=== PATIENT | male | born 1960 | race African-American/Black ===

== ENCOUNTER 2017-07-02 13:32 | Inpatient (IN) | payer BC ==
--- NOTE | 2017-07-02 16:19 | EKG ---
Test Date: 2017-07-02 Test Time: 15:28:29 Wire Brush Maker: NIDHI MEASUREMENT RESULTS: Intervals: Rate: 78 CA: QRSD: 114 QT: 456 QTc: 519 [place]: P: CA: QRS: 1 T: 202 INTERPRETIVE STATEMENTS: Atrial fibrillation with premature ventricular or aberrantly conducted complexes ST & T wave abnormality, consider inferior ischemia ST & T wave abnormality, consider anterolateral ischemia Prolonged QT Abnormal ECG No previous ECG available for comparison Electronically Signed On 07-02-17 16:19:12 CDT by Power Salazar
[2017-07-02 16:40] LABS: Bilirubin Direct 0.1 mg/dL (0-0.2); Bilirubin Total 0.9 mg/dL (0.3-1.2); Magnesium 2.3 mg/dL (1.8-2.5); Protein, Total 7.8 g/dL (6.0-8.3)
[2017-07-02 16:43] LABS: CKMB Creatine Kinase MB 4.6 ng/ml (0.3-4.0)
[2017-07-02 16:53] LABS: Absolute Lymphocytes (CBC) 1.3 K/uL (0.7-4.9); Absolute Monocytes 0.6 K/uL (0.1-1.3); Absolute Neutrophil 11.2 K/uL (1.8-8.0); Basophils % 0.4 % (0-1.3); Eosinophils % 0.7 % (0-4.4); Lymphocytes % 9.8 % (15.3-44.8); MCV 84.4 fL (80-100); MPV 8.8 fL (7.6-11.3); Monocytes % 4.5 % (3.3-12.3); RBC Red Blood Cell Count 4.75 M/uL (4.33-5.43)
[2017-07-02 16:56] LABS: Protime INR 1.41
--- NOTE | 2017-07-02 16:59 | RAD REPORT ---
EXAM DESCRIPTION: CT - Head Brain Wo Cont - 07/02/2017 4:46 pm CLINICAL HISTORY: Weakness, dizziness, loss of appetite COMPARISON: None. TECHNIQUE: Axial 5 mm thick images of the head were obtained without IV contrast. All CT scans are performed using dose optimization technique as appropriate and may include automated exposure control or mA/KV adjustment according to patient size. FINDINGS: No intracranial hemorrhage, mass, edema or shift of mid-line structures. No acute infarcti on changes seen. No abnormal extra-axial fluid collections. Ventricles are normal. Mastoid air cells and visualized portions of the paranasal sinuses are clear. No acute bony findings. IMPRESSION: Negative non-contrast CT head examination.
[2017-07-02] MEDS ORDERED: NA CHLORIDE 0.9% 1,000 ML ONE (17:56)
[2017-07-02] MEDS ORDERED: ASPIRIN 81 MG CHEWABLE TABLET ONE (17:56)
--- NOTE | 2017-07-02 17:59 | RAD REPORT ---
EXAM DESCRIPTION: CT - Stone Protocol - 07/02/2017 5:33 pm CLINICAL HISTORY: Abdominal pain. Acute renal failure COMPARISON: November 2016 renal ultrasound TECHNIQUE: Computed axial tomography of the abdomen pelvis was obtained without oral or IV contrast. Lack of IV and oral contrast limits evaluation of solid organs, bowel, and vessels. Coronal reformat viet images were obtained and reviewed. All CT scans are performed using dose optimization technique as appropriate and may include automated exposure control or mA/KV adjustment according to patient size. FINDINGS: A renal calculus is not seen. An ureteral calculus is not noted. A bladder calculus is not present. Sub centimeter hemorrhagic right renal cyst is present. A sub centimeter hemorrhagic left r enal cyst is seen. A 14 millimeter intermediate density mass extends off of the left kidney. The liver has a diminished attenuation consistent with fatty infiltration. Spleen, and pancreas appear grossly normal. Small right adrenal adenoma is suspected. The left adrena l gland is unremarkable. The gallbladder is distended. The appendix is normal. There is no evidence of diverticulitis. Small inguinal hernias contain fat. IMPRESSION: Negative for a genitourinary calculus Sub centimeter hemorrhagic renal cysts. 14 millimeter intermediate density mass extending off the lef t kidney likely either representing a hemorrhagic/proteinaceous cyst. This should be confirmed with a nonemergent ultrasound Gallbladder distention. The gallbladder wall does not appear thickened
--- NOTE | 2017-07-02 18:06 | RAD REPORT ---
EXAM DESCRIPTION: Jhonatan Single View07/02/2017 3:26 pm CLINICAL HISTORY: Chest pain COMPARISON: none FINDINGS: The lungs appear clear of acute infiltrate. The heart is mildly enlarged IMPRESSION: No acute abnormalities displayed
--- NOTE | 2017-07-02 18:07 | ER ---
Nurse's Notes [facility] Emergency Department Name: Arley Bauer Age: 57 yrs Sex: Male : 1960 Arrival Date: 07/02/2017 Time: 13:35 Bed 24 Private MD: Lou Newton H Diagnosis: Acute kidney failure;[place] Toxicity;Hypokalemia Presentation: 07/02 13:46 Presenting complaint: states: no appetite, weakness and not able to take anything; hj confused and complaints of shakiness; denies fever and chills;. Transition of care: patient was not received from another setting of care. Onset of symptoms was July 02, 2017. Care prior to arrival: None. 13:46 Method Of Arrival: Ambulatory 13:46 Acuity: SHANNEN 3 hj Triage Assessment: 13:52 General: Appears in no apparent distress. uncomfortable, Behavior is appropriate for hj age, agitated. Pain: Denies pain. Historical: - Allergies: 13:52 No Known Allergies; hj - Home Meds: 13:52 warfarin 5 mg Oral tab 1 tab once daily [Active]; potassium chloride 20 mEq Oral pack 1 hj packet daily [Active]; furosemide 40 mg Oral tab 1 tab 2 times per day [Active]; lithium carbonate 300 mg Oral TbER 1 tab 2 times per day [Active]; metoprolol tartrate 50 mg Oral tab 1 tab once daily [Active]; lisinopril-hydrochlorothiazide 20-12.5 mg oral tab 1 tab once daily [Active]; Tradjenta 5 mg oral tab 1 tab once daily [Active]; haloperidol lactate 2 mg/mL Oral conc 2 tab daily [Active]; - PMHx: 13:52 Diabetes - NIDDM; Atrial Fib; Hypertension; Bipolar disorder; hj - PSHx: 13:52 None; hj - Immunization history:: Adult Immunizations up to date. - Social history:: Smoking status: Patient/guardian denies using tobacco, never smoked. Screenin:17 Abuse screen: Denies threats or abuse. Nutritional screening: No deficits noted. tl3 Tuberculosis screening: No symptoms or risk factors identified. Fall Risk None identified. Assessment: 14:17 General: Appears comfortable, well groomed, well developed, well nourished, Behavior is tl3 calm, cooperative, appropriate for age. Pain: Denies pain. Neuro: Level of Consciousness is awake, alert, obeys commands, Oriented to person, place, time, situation, Appropriate for age. Neuro: Reports weakness shaking , loss of memory, confusion and loss of appetite for about 2-3 weeks. Cardiovascular: Heart tones S1 S2 present Capillary refill < 3 seconds. Respiratory: Breath sounds are clear bilaterally. GI: No signs and/or symptoms were reported involving the gastrointestinal system. Abdomen is round Bowel sounds present X 4 quads. : No signs and/or symptoms were reported regarding the genitourinary system. EENT: No signs and/or symptoms were reported regarding the EENT system. Derm: No signs and/or symptoms reported regarding the dermatologic system. Musculoskeletal: No signs and/or symptoms reported regarding the musculoskeletal system. 15:30 Reassessment: Patient appears in no apparent distress at this time. No changes from tl3 previously documented assessment. Patient and/or family updated on plan of care and expected duration. Pain level reassessed. Patient is alert, oriented x 3, equal unlabored respirations, skin warm/dry/pink. at bedside. 16:40 Reassessment: Patient appears in no apparent distress at this time. No changes from tl3 previously documented assessment. Patient and/or family updated on plan of care and expected duration. Pain level reassessed. Patient is alert, oriented x 3, equal unlabored respirations, skin warm/dry/pink. 17:30 Reassessment: Patient appears in no apparent distress at this time. No changes from tl3 previously documented assessment. Patient and/or family updated on plan of care and expected duration. Pain level reassessed. Patient is alert, oriented x 3, equal unlabored respirations, skin warm/dry/pink. pacheco placed with output of 600ml urine. 19:09 Reassessment: Patient appears in no apparent distress at this time. No changes from tl3 previously documented assessment. Patient and/or family updated on plan of care and expected duration. Pain level reassessed. Patient is alert, oriented x 3, equal unlabored respirations, skin warm/dry/pink. pt tolerating water and peanut butter and crackers. 20:13 Reassessment: Patient appears in no apparent distress at this time. No changes from tl3 previously documented assessment. Patient and/or family updated on plan of care and expected duration. Pain level reassessed. Patient is alert, oriented x 3, equal unlabored respirations, skin warm/dry/pink. son at bedside. 20:25 Reassessment: pt returned from ultrasound. tl3 20:57 Reassessment: attempted to call report for the second time, Kolby LAMA will call back tl3 CALOS. 21:26 Reassessment: lab called to come draw labs. tl3 Vital Signs: 13:52 BP 92 / 48; Pulse 71; Resp 18; Temp 97.2(TE); Pulse Ox 100% on R/A; Weight 108.86 kg; hj Height 5 ft. 8 in. (172.72 cm); Pain 0/10; 14:17 BP 106 / 64; Pulse 69; Resp 18; Pulse Ox 98% ; tl3 18:30 BP 125 / 66; Pulse 81; Resp 18; Pulse Ox 100% ; tl3 19:13 BP 154 / 83; Pulse 70; Resp 16; Pulse Ox 98% ; tl3 13:52 Body Mass Index 36.49 (108.86 kg, 172.72 cm) ED Course: 13:35 Patient arrived in ED. mr 13:35 Lou Newton DO is Private Physician. mr 13:48 Triage completed. hj 13:52 Arm band placed on left wrist. hj 14:02 [facility]. cp 14:02 Guilherme Knapp MD is Attending Physician. cp 14:11 Sybil Iglesias, KELBY is Primary Nurse. tl3 14:17 Patient has correct armband on for positive identification. Bed in low position. Call tl3 light in reach. Side rails up X 1. Adult w/ patient. Pulse ox on. NIBP on. 15:26 X-ray completed. Portable x-ray completed in exam room. Patient tolerated procedure kw1 well. 15:26 XRAY Chest (1 view) In Process Unspecified. EDMS 15:45 EKG done, by pressure testing technician. reviewed by Guilherme BISHOP. at1 16:33 CT Head Brain wo Cont Sent. tl3 16:45 Notified Nurse Practitioner and/or Physician Core Microarchitect of a critical lab result(s), dm5 Creatinine 6.57, lithium 2.6. 16:46 CT Head Brain wo Cont In Process Unspecified. EDMS 16:46 CT completed. Patient moved back from CT. jj2 17:32 CT Stone Protocol In Process Unspecified. EDMS 18:05 Amadou Solis MD is Hospitalizing Provider. cp 18:30 Pacheco cath inserted, using sterile technique, 16 Fr., by or, balloon inflated, urine tl3 specimen collected. returned clear yellow urine. Patient tolerated well. 20:19 Ultrasound completed. Patient tolerated well. aa4 20:42 No provider procedures requiring assistance completed. tl3 20:42 Patient admitted, IV remains in place. tl3 Administered Medications: 17:39 Not Given (Physician Discretion): NS 0.9% 1000 ml IV at 1 bolus Per protocol; 1000 mL cp bolus 17:39 Not Given (Physician Discretion): NS 0.9% 1000 ml IV at 100 ml/hr continuous cp 17:43 Drug: Aspirin Chewable Tablet 324 mg Route: PO; tl3 20:12 Follow up: Response: No adverse reaction tl3 18:00 Drug: NS 0.9% 500 ml Route: IV; Rate: bolus; Site: right antecubital; Delivery: Primary tl3 tubing; 19:05 Follow up: IV Status: Completed infusion; IV Intake: 500ml tl3 18:20 Drug: NS 0.9% 1000 ml Route: IV; Rate: 75 ml/hr; Site: right antecubital; tl3 20:41 Follow up: IV Status: Infusion continued upon admission tl3 Point of Care Testing: Blood Glucose: 18:30 Blood Glucose: 178 mg/dL; tl3 Ranges: Intake: 19:05 IV: 500ml; Total: 500ml. tl3 Output: 18:30 Urine: 600ml; Total: 600ml. tl3 Outcome: 18:07 Decision to Hospitalize by Provider. cp 20:43 Admitted to Tele accompanied by tech, via stretcher, with chart. tl3 20:43 Condition: stable 23:00 Patient left the ED. tl3 Signatures: Dispatcher [employer] EDNE Lorena Hinds, RN RN dm5 Paradise Ramon mr Velasquez Roberta Benitez aa4 Roberta jimenez, real estate professional EKG Tat1 Austyn Brown RN RN Guilherme Fajardo PA PA cp Evie Garibay1 Sybil Iglesias RN RN tl3 Corrections: (The following items were deleted from the chart) 13:56 13:52 Pulse 71bpm; Resp 18bpm; Pulse Ox 100% RA; Temp 97.2F Temporal; 108.86 kg; Height hj 5 ft. 8 in.; BMI: 36.4; Pain 0/10; hj 13:57 13:52 BP 100 / 48; Pulse 71bpm; Resp 18bpm; Pulse Ox 100% RA; Temp 97.2F Temporal; hj 108.86 kg; Height 5 ft. 8 in.; BMI: 36.4; Pain 0/10; hj 19:13 19:05 URINE DIPSTICK--ANCILLARY+U.LAB.BRZ drawn and sent. tl3 tl3
--- NOTE | 2017-07-02 18:07 | EDPHYS ---
Physician Documentation [facility] Name: Arley Bauer Age: 57 yrs Sex: Male : 1960 Arrival Date: 07/02/2017 Time: 13:35 Bed 24 Private MD: Lou Newton H ED Physician Guilherme Knapp HPI: 07/02 14:55 This 57 yrs old Black Male presents to ER via Ambulatory with complaints of General cp Weakness. 14:55 general weakness, decreased appetite and oral intake. Onset: The symptoms/episode cp began/occurred gradually. 14:55 Severity of symptoms: in the emergency department the symptoms are unchanged despite cp home interventions. Historical: - Allergies: 13:52 No Known Allergies; hj - Home Meds: 13:52 warfarin 5 mg Oral tab 1 tab once daily [Active]; potassium chloride 20 mEq Oral pack 1 hj packet daily [Active]; furosemide 40 mg Oral tab 1 tab 2 times per day [Active]; lithium carbonate 300 mg Oral TbER 1 tab 2 times per day [Active]; metoprolol tartrate 50 mg Oral tab 1 tab once daily [Active]; lisinopril-hydrochlorothiazide 20-12.5 mg oral tab 1 tab once daily [Active]; Tradjenta 5 mg oral tab 1 tab once daily [Active]; haloperidol lactate 2 mg/mL Oral conc 2 tab daily [Active]; - PMHx: 13:52 Diabetes - NIDDM; Atrial Fib; Hypertension; Bipolar disorder; hj - PSHx: 13:52 None; hj - Immunization history:: Adult Immunizations up to date. - Social history:: Smoking status: Patient/guardian denies using tobacco, never smoked. ROS: 15:00 Constitutional: Positive for poor PO intake, Negative for body aches, chills, fever. cp 15:00 Eyes: Negative for injury, pain, redness, and discharge, ENT: Negative for injury, cp pain, and discharge, Cardiovascular: Negative for chest pain, palpitations, and edema, Respiratory: Negative for shortness of breath, cough, wheezing, and pleuritic chest pain, Abdomen/GI: Negative for abdominal pain, nausea, vomiting, diarrhea, and constipation, Skin: Negative for injury, rash, and discoloration. 15:00 : Positive for decreased urinary output. 15:00 Neuro: Positive for gait disturbance, general weakness, Negative for altered mental status, headache, seizure activity, speech changes. 15:00 All other systems are negative. Exam: 15:10 Constitutional: The patient appears in no acute distress, alert, awake, cp non-diaphoretic, non-toxic, well developed, well nourished. 15:10 Head/Face: Normocephalic, atraumatic. cp 15:10 Eyes: Periorbital structures: appear normal, Pupils: equal, round, and reactive to cp light and accomodation, Extraocular movements: intact throughout, Conjunctiva: normal, no exudate, no injection, Sclera: no appreciated abnormality, Lids and lashes: appear normal, bilaterally. 15:10 ENT: External ear(s): are unremarkable, Ear canal(s): are normal, clear, TM's: dullness, bilaterally, Nose: is normal, Mouth: Lips: moist, Oral mucosa: dry, Posterior pharynx: Airway: no evidence of obstruction, patent, Tonsils: are normal in appearance, Uvula: midline, non-edematous, no erythema, swelling, is not appreciated, erythema, is not appreciated, exudate, is not appreciated, Voice: is normal. 15:10 Neck: ROM/movement: is normal, is supple, without pain, no range of motions limitations, no meningismus, no nuchal rigidity, Lymph nodes: no appreciated lymphadenopathy. 15:10 Chest/axilla: Inspection: normal, Palpation: is normal, no crepitus, no tenderness. 15:10 Cardiovascular: Rate: normal, Rhythm: regular, Pulses: weak, Edema: is not appreciated, JVD: is not appreciated. 15:10 Respiratory: the patient does not display signs of respiratory distress, Respirations: normal, no use of accessory muscles, no retractions, no splinting, no tachypnea, labored breathing, is not present, Breath sounds: are clear throughout, no decreased breath sounds, no stridor, no wheezing. 15:10 Abdomen/GI: Inspection: abdomen appears normal, Bowel sounds: active, all quadrants, Palpation: abdomen is soft and non-tender, in all quadrants, rebound tenderness, is not appreciated, voluntary guarding, is not appreciated, involuntary guarding, is not appreciated. 15:10 Back: pain, is absent, ROM is normal. 15:10 Skin: cellulitis, is not appreciated, no rash present. 15:10 Neuro: Orientation: to person, place \T\ time. Mentation: able to follow commands, slow to respond, Cerebellar function: Romberg testing is negative, normal finger to nose testing, Motor: moves all fours, general weakness w/o focal deficits, Sensation: no obvious gross deficits, Gait: not tested. 15:35 ECG was reviewed by the Attending Physician. Vital Signs: 13:52 BP 92 / 48; Pulse 71; Resp 18; Temp 97.2(TE); Pulse Ox 100% on R/A; Weight 108.86 kg; hj Height 5 ft. 8 in. (172.72 cm); Pain 0/10; 14:17 BP 106 / 64; Pulse 69; Resp 18; Pulse Ox 98% ; tl3 18:30 BP 125 / 66; Pulse 81; Resp 18; Pulse Ox 100% ; tl3 19:13 BP 154 / 83; Pulse 70; Resp 16; Pulse Ox 98% ; tl3 13:52 Body Mass Index 36.49 (108.86 kg, 172.72 cm) MDM: 14:05 Patient medically screened. [facility] 15:00 Differential Diagnosis sepsis, acute [place], acute renal failure, dehydration, pneumonia. 17:30 Data reviewed: vital signs, nurses notes, lab test result(s), EKG, radiologic studies, cp plain films. 17:30 Test interpretation: by ED physician or midlevel provider: ECG, plain radiologic cp studies. Response to treatment: the patient's symptoms have mildly improved after treatment. 17:39 Physician consultation: Yojana Camp MD. 07/02 14:51 Order name: Basic Metabolic Panel; Complete Time: 16:53 07/02 16:54 Interpretation: Normal except: GLUC 200; K 3.0; NA 125; CL 90; CO2 19; BUN 102; CRE cp 6.57; GFR 11. 07/02 14:51 Order name: BNP; Complete Time: 16:53 cp 07/02 14:51 Order name: CBC with Diff; Complete Time: 17:00 cp 07/02 17:00 Interpretation: Normal except: WBC 13.2; HGB 13.3; ZAYNAB% 84.6; LYM% 9.8; NEUT A 11.2. cp 07/02 14:51 Order name: Ckmb; Complete Time: 16:53 07/02 14:51 Order name: CPK; Complete Time: 16:53 07/02 14:51 Order name: LFT's; Complete Time: 16:53 07/02 17:09 Interpretation: ALK 162; GLOB 3.8; Reviewed. 07/02 14:51 Order name: Magnesium; Complete Time: 16:53 07/02 14:51 Order name: PT-INR; Complete Time: 17:00 07/02 17:01 Interpretation: Abnormal: PT 16.7. 07/02 14:51 Order name: Ptt, Activated; Complete Time: 17:00 07/02 14:51 Order name: Troponin (emerg Dept Use Only); Complete Time: 16:53 07/02 16:55 Interpretation: TROPED 0.04; Reviewed. 07/02 14:51 Order name: [place]; Complete Time: 16:53 07/02 16:54 Interpretation: Abnormal: LI 2.6. 07/02 17:40 Order name: UDS 07/02 18:41 Order name: Urine Dipstick--Ancillary (enter results) ag 07/02 18:46 Order name: PSA Screen [facility] 07/02 14:51 Order name: XRAY Chest (1 view); Complete Time: 18:31 07/02 14:51 Order name: EKG; Complete Time: 14:52 07/02 16:10 Order name: CT Head Brain wo Cont; Complete Time: 17:00 07/02 17:11 Order name: CT Stone Protocol; Complete Time: 18:31 07/02 17:12 Order name: Diet Renal; Complete Time: 17:12 07/02 18:42 Order name: CONS Physician Consult [facility] 07/02 18:46 Order name: T3 Free [facility] 07/02 18:46 Order name: Thyroid Stimulating Hormone [facility] 07/02 20:26 Order name: US [facility] 07/02 22:29 Order name: Glucose, Ancillary Testing [facility] 07/02 14:51 Order name: Cardiac monitoring; Complete Time: 15:07 07/02 14:51 Order name: EKG - Nurse/Tech; Complete Time: 19:08 07/02 14:51 Order name: IV Saline Lock; Complete Time: 19:07 cp 07/02 14:51 Order name: Labs collected and sent; Complete Time: 19: cp 07/02 14:51 Order name: O2 Per Protocol; Complete Time: : cp 07/02 14:51 Order name: O2 Sat Monitoring; Complete Time: 19: cp 07/02 14:51 Order name: Urine Dipstick-Ancillary (obtain specimen); Complete Time: 19: cp 07/02 14:52 Order name: Misc. Order: have patient change into gown; Complete Time: 15: cp 07/02 15:12 Order name: Accucheck Blood Glucose; Complete Time: 19: cp 07/02 17:11 Order name: Real; Complete Time: 19: cp EC:35 Rate is 78 beats/min. Rhythm is irregularly irregular. QRS interval is prolonged at 114 cp msec. QT interval is prolonged at 456 msec. T waves are Inverted in leads I, II. Interpreted by me. Reviewed by me. Administered Medications: 17:39 Not Given (Physician Discretion): NS 0.9% 1000 ml IV at 1 bolus Per protocol; 1000 mL cp bolus 17:39 Not Given (Physician Discretion): NS 0.9% 1000 ml IV at 100 ml/hr continuous cp 17:43 Drug: Aspirin Chewable Tablet 324 mg Route: PO; tl3 20:12 Follow up: Response: No adverse reaction tl3 18:00 Drug: NS 0.9% 500 ml Route: IV; Rate: bolus; Site: right antecubital; Delivery: Primary tl3 tubing; 19:05 Follow up: IV Status: Completed infusion; IV Intake: 500ml tl3 18:20 Drug: NS 0.9% 1000 ml Route: IV; Rate: 75 ml/hr; Site: right antecubital; tl3 20:41 Follow up: IV Status: Infusion continued upon admission tl3 Point of Care Testing: Blood Glucose: 18:30 Blood Glucose: 178 mg/dL; tl3 Ranges: Critical Glucose Levels:Adult <50 mg/dl or >400 mg/dl <40 mg/dl or >180 mg/dl Disposition: 07/03 06:45 Co-signature as Attending Physician, Guilherme Knapp MD I agree with the assessment and kai plan of care. Disposition: 07/02/17 18:07 Hospitalization ordered by Solis, Mohammad for Inpatient Admission. Preliminary diagnosis are Acute kidney failure, [place] Toxicity, Hypokalemia. - Bed requested for Telemetry/MedSurg (Inpatient). - Status is Inpatient Admission. tl3 - Condition is Serious. - Problem is new. - Symptoms are unchanged. UTI on Admission? No Signatures: Dispatcher [employer] EDMS Evie Olmedo, KELBY RN Guilherme Mg MD MD cha Joaquin, Henry, RN RN hj Page, Corey, PA PA cp Lowrey, Tammy, RN RN tl3 Corrections: (The following items were deleted from the chart) 07/02 16:54 16:37 Normal except: GLUC 200. cp cp
[2017-07-02 18:51] LABS: Barbiturates NEGATIVE; Benzodiazepines NEGATIVE; Cocaine NEGATIVE; METHAMPHETAM NEGATIVE; Opiates NEGATIVE; Phencyclidine NEGATIVE; THC Cannibis NEGATIVE
[2017-07-02] MEDS ORDERED: NA CHLORIDE 0.9% 1,000 ML IV SCH (19:00)
[2017-07-02 19:25] LABS: Urine Blood TRACE (NEG); Urine Glucose NEGATIVE (NEG); Urine Protein 3+ (NEG); Urine pH 5.5 (5.0-7.0)
[2017-07-02] MEDS ORDERED: ACETAMINOPHEN 500 MG TAB PO PRN (19:36)
[2017-07-02] MEDS ORDERED: MORPHINE 2 MG/ML SYR IV PRN (19:36)
[2017-07-02] MEDS ORDERED: ONDANSETRON 4 MG/2 ML VIAL IV PRN (19:36)
[2017-07-02] MEDS: D5W 1,000 ML with NA BICARB 8.4% 50 MEQ IV SCH ×2 (20:00)
--- NOTE | 2017-07-02 20:26 | RAD REPORT ---
EXAM DESCRIPTION: US - Renal Ultrasound-Complete - 07/02/2017 8:19 pm CLINICAL HISTORY: . Acute renal insufficiency COMPARISON: CT scan on the same date FINDINGS: The right kidney measures 12 cm with increased echotexture. The left kidney measures 12 cm with increased echotexture. Hydronephrosis is not seen. Small benign-appearing renal cysts are present IMPRESSION: Increased renal echotexture consistent with parenchymal disease No hydronephrosis Small benign-appearing renal cysts
[2017-07-02 23:32] LABS: T3 Free 2.86 pg/ml (2.84-4.24)
[2017-07-02 23:49] LABS: Thyroid Stimulating Hormone 1.96 uIU/mL (0.34-5.60)
[2017-07-03] MEDS ORDERED: D5W 1,000 ML IV ONE (00:19)
[2017-07-03] MEDS ORDERED: SODIUM BICARB 50 MEQ/50ML VIAL ONE (00:20)
[2017-07-03 04:28] LABS: Absolute Lymphocytes (CBC) 1.9 K/uL (0.7-4.9); Absolute Monocytes 0.8 K/uL (0.1-1.3); Absolute Neutrophil 11.4 K/uL (1.8-8.0); Basophils % 0.3 % (0-1.3); Eosinophils % 1.6 % (0-4.4); Hematocrit 32.9 % (39.6-49.0); Lymphocytes % 13.1 % (15.3-44.8); MCV 84.3 fL (80-100); MPV 8.8 fL (7.6-11.3); Monocytes % 5.8 % (3.3-12.3); RBC Red Blood Cell Count 3.91 M/uL (4.33-5.43)
[2017-07-03 05:00] LABS: Albumin 3.2 g/dL (3.2-5.5); Bilirubin Total 0.7 mg/dL (0.3-1.2); Phosphorus 4.5 mg/dL (2.5-4.3); Protein, Total 6.6 g/dL (6.0-8.3)
[2017-07-03 05:03] LABS: Uric Acid 23.2 mg/dL (4.8-8.7)
[2017-07-03 05:05] LABS: Potassium 2.5 mEq/L (3.6-5.0)
[2017-07-03] MEDS: KCL 20 MEQ/100 mL IVPB 20 MEQ/100 ML BAG IV SCH ×4 (05:58→21:53)
[2017-07-03] MEDS ORDERED: POTASSIUM 25 MEQ EFFERV TAB PO ONE ×2 (06:00→11:00)
[2017-07-03 06:08] LABS: Urine Appearance CLOUDY; Urine Bilirubin NEGATIVE (NEG); Urine Blood 3+ (NEG); Urine Color YELLOW; Urine Glucose NEGATIVE (NEG); Urine Protein 2+ (NEG); Urine Urobilinogen 0.2 mg/dL (0.2-1.0); Urine pH 5.5 (5.0-7.0)
[2017-07-03] MEDS: D5W 1,000 ML with NA BICARB 8.4% 50 MEQ IV SCH ×2 (06:30)
[2017-07-03 06:34] LABS: Urine Bacteria <20 /HPF (NONE SEEN); Urine Culture Reflex Order REFLEXED
[2017-07-03] MEDS ORDERED: PNEUMOCOCCAL VACCINE 0.5 ML IMVAC ONE (08:00)
[2017-07-03] MEDS ORDERED: INFLUENZA VACCINE (for 3y+) 0.5 ML DOSE IMVAC ONE (08:00)
[2017-07-03] MEDS ORDERED: NA CHLORIDE 0.9% 500 ML IV ONE ×2 (08:07→08:44)
--- NOTE | 2017-07-03 08:12 | P.HP ---
Certification for Inpatient Patient admitted to: Inpatient With expected LOS: >2 Midnights Patient will require the following post-hospital care: None Practitioner: I am a practitioner with admitting privileges, knowledge of patient current condition, hospital course, and medical plan of care. Services: Services provided to patient in accordance with Admission requirements found in Title 42 Section 412.3 of the Code of Federal Regulations Patient History Date of Service: 07/02/17 Reason for admission: Acute kidney injury; altered mental status History of Present Illness: Patient is a 57-year-old gentleman who presents to the hospital with altered mentation. Patient has been lethargic and has not been eating or drinking for the last few days. The family was concerned and brought him into the emergency room. In the emergency room, patient's workup revealed acute kidney injury. Patient had significantly elevated BUN and creatinine. Patient and family denies that he has ever had a history of kidney issues. He is being treated for bipolar disorder with lithium. His lithium level was elevated because of his acute kidney injury. At this time will hydrate him aggressively and monitor his labs as well as order renal ultrasound. We will check his urine protein:creatinine ratio. Will continue monitoring his labs. Nephrology consultation. Allergies No Known Allergies Allergy (Verified 07/03/17 02:03) Home Medications: Furosemide [Lasix] 40 mg PO BIDL 07/03/17 Haloperidol Lactate 2 mg PO DAILY 07/03/17 Linagliptin [Tradjenta] 5 mg PO DAILY 07/03/17 Lisinopril/Hydrochlorothiazide [Lisinopril-Hctz 20-12.5 mg Tab] 1 tab PO DAILY 07/03/17 [place] Carbonate [[place] Carbonate ER] 300 mg PO BID 07/03/17 Metoprolol Succinate [Toprol Xl] 50 mg PO DAILY 07/03/17 Potassium Chloride 20 meq PO DAILY 07/03/17 Warfarin Sodium [Coumadin] 5 mg PO DIRECTED 07/03/17 Warfarin Sodium [Coumadin] 7.5 mg PO DIRECTED 07/03/17 - Past Medical/Surgical History Has patient received pneumonia vaccine in the past: No Diabetic: Yes -: A fib (Mar 2017) -: Depression Past Surgical History: Patient denies surgical history - Family History Mother Medical History: Hypertension, Diabetes - Social History Smoking Status: Never smoker Alcohol use: No CD- Drugs: No Caffeine use: Yes Place of Residence: Home Review of Systems 10-point ROS is otherwise unremarkable Physical Examination - Vital Signs Temperature: 97.5 F Blood Pressure: 133/66 Pulse: 60 Respirations: 18 Pulse Ox (%): 98 - Physical Exam General: Alert, In no apparent distress, Oriented x3 HEENT: Atraumatic, PERRLA, Mucous membr. moist/pink, EOMI, Sclerae nonicteric Neck: Supple, 2+ carotid pulse no bruit, No LAD, Without JVD or thyroid abnormality Respiratory: Clear to auscultation bilaterally, Normal air movement Cardiovascular: Regular rate/rhythm, Normal S1 S2, No murmurs Gastrointestinal: Normal bowel sounds, Soft and benign, Non-distended, No tenderness Musculoskeletal: No clubbing, No swelling, No tenderness Integumentary: No rashes Neurological: Normal gait, Normal speech, Normal strength at 5/5 x4 extr, Normal tone, Sensation intact, Cranial nerves 3-12 intact, Normal affect Lymphatics: No axilla or inguinal lymphadenopathy - Studies Laboratory Data (last 24 hrs) 07/02/17 16:07: PT 16.7 H, INR 1.41, APTT 28.0 07/02/17 16:07: WBC 13.2 H, Hgb 13.3 L, Hct 40.0, Plt Count 371 07/02/17 16:07: B-Natriuretic Peptide 156 H 07/02/17 16:07: Sodium 125 L, Potassium 3.0 L, BUN 102 H, Creatinine 6.57 H*, Glucose 200 H, Magnesium 2.3, Total Bilirubin 0.9, AST 15, ALT 16, Alkaline Phosphatase 162 H Assessment & Plan - Problems (Diagnosis) (1) Acute kidney injury Current Visit: Yes Status: Acute (2) Prerenal azotemia Current Visit: Yes Status: Acute (3) Metabolic acidosis Current Visit: Yes Status: Acute (4) Hyponatremia Current Visit: Yes Status: Acute (5) Hypokalemia Current Visit: Yes Status: Acute (6) Bipolar disorder Current Visit: Yes Status: Acute (7) [place] toxicity Current Visit: Yes Status: Acute - Plan Plan: 1. Aggressive IV hydration 2. Bicarbonate drip 3. Nephrology consultation 4. Renal ultrasound 5. Additional lab workup to monitor renal function 6. Strict input and output 7. Echocardiogram 8. DVT prophylaxis - Advance Directives Does patient have a Living Will: Yes Does patient have a Durable POA for Healthcare: No - Code Status/Comfort Care Code Status Assessed: Yes Code Status: Full Code Critical Care: No Time Spent Managing PTS Care (In Minutes): 50
[2017-07-03] MEDS ORDERED: KCL 20 MEQ/100 mL IVPB 20 MEQ/100 ML BAG IV ONE (08:30)
[2017-07-03] MEDS: NA CHLORIDE 0.9% 500 ML IV ONE ×2 (10:08→10:12)
[2017-07-03 10:16] LABS: UR CREAT 93.5 mg/dL; Urine Protein/Creatinine Ratio 1.42 (<0.15)
[2017-07-03] MEDS ORDERED: D5W 1,000 ML with NA BICARB 8.4% 50 MEQ IV SCH ×2 (11:00)
[2017-07-03] MEDS ORDERED: D50W 25 GM/50 ML SYRINGE IV PRN (12:15)
[2017-07-03] MEDS ORDERED: GLUCAGON 1 MG/VIAL IM PRN (12:15)
[2017-07-03] MEDS: D5W 1,000 ML with NA BICARB 8.4% 150 MEQ IV SCH ×4 (12:25→22:04)
[2017-07-03] MEDS: INSULIN -REGULAR HUMAN 50 UNIT/0.5 ML ML SQ SCH ×3 (12:40→21:55)
--- NOTE | 2017-07-03 15:41 | P.PN ---
Subjective Date of Service: 07/03/17 Chief Complaint: Acute kidney injury; altered mental status The patient feels better with more alert and he has no new complaints Physical Examination - Vital Signs Temperature: 97.5 F Blood Pressure: 133/66 Pulse: 60 Respirations: 18 Pulse Ox (%): 98 - Physical Exam General: Alert, In no apparent distress HEENT: Atraumatic, PERRLA, EOMI Neck: Supple, JVD not distended Respiratory: Clear to auscultation bilaterally, Normal air movement Cardiovascular: Regular rate/rhythm, Normal S1 S2 Gastrointestinal: Normal bowel sounds, No tenderness Musculoskeletal: No tenderness Integumentary: No rashes Neurological: Normal speech, Normal tone, Normal affect Lymphatics: No axilla or inguinal lymphadenopathy - Studies Laboratory Data (last 24 hrs) 07/02/17 16:07: PT 16.7 H, INR 1.41, APTT 28.0 07/02/17 16:07: WBC 13.2 H, Hgb 13.3 L, Hct 40.0, Plt Count 371 07/02/17 16:07: B-Natriuretic Peptide 156 H 07/02/17 16:07: Sodium 125 L, Potassium 3.0 L, BUN 102 H, Creatinine 6.57 H*, Glucose 200 H, Magnesium 2.3, Total Bilirubin 0.9, AST 15, ALT 16, Alkaline Phosphatase 162 H Medications List Reviewed: Yes Assessment And Plan - Current Problems (Diagnosis) (1) [place] toxicity Onset Date: 07/03/17 Current Visit: Yes Status: Acute (2) Acute kidney injury Onset Date: 07/03/17 Current Visit: Yes Status: Acute (3) Bipolar disorder Onset Date: 07/03/17 Current Visit: Yes Status: Acute (4) Hypokalemia Onset Date: 07/03/17 Current Visit: Yes Status: Acute (5) Metabolic acidosis Onset Date: 07/03/17 Current Visit: Yes Status: Acute - Plan --continue intravenous fluid replacement --continue potassium replacement --follow-up lithium level --consult Nephrology
[2017-07-03 16:38] LABS: Potassium 2.9 mEq/L (3.6-5.0)
--- NOTE | 2017-07-03 18:42 | P.CNS ---
Date of Consult: 07/03/17 Reason for Consult: ARTEMIO Requesting Physician: Charles Coleman Chief Complaint: Acute kidney injury; altered mental status History of Present Illness: 57 yo BM on Mac[place] presented to the ER with several weeks of moderate, progressive malaise and anorexia that worsened significantly over the last few days with AMS. Question of urinary retention. No NSAIDs. Limited HPI/ ROS from the patient. Patient is a 57-year-old gentleman who presents to the hospital with altered mentation. Patient has been lethargic and has not been eating or drinking for the last few days. The family was concerned and brought him into the emergency room. In the emergency room, patient's workup revealed acute kidney injury. Patient had significantly elevated BUN and creatinine. Patient and family denies that he has ever had a history of kidney issues. He is being treated for bipolar disorder with lithium. His lithium level was elevated because of his acute kidney injury. At this time will hydrate him aggressively and monitor his labs as well as order renal ultrasound. We will check his urine protein:creatinine ratio. Will continue monitoring his labs. Nephrology consultation. 14:55 This 57 yrs old Black Male presents to ER via Ambulatory with complaints of General cp Weakness. 14:55 general weakness, decreased appetite and oral intake. Onset: The symptoms/ episode cp began/occurred gradually. 14:55 Severity of symptoms: in the emergency department the symptoms are unchanged despite cp home interventions. Allergies No Known Allergies Allergy (Verified 07/03/17 02:03) Home medications list reviewed: Yes Home Medications: Furosemide [Lasix] 40 mg PO BIDL 07/03/17 Haloperidol Lactate 2 mg PO DAILY 07/03/17 Linagliptin [Tradjenta] 5 mg PO DAILY 07/03/17 Lisinopril/Hydrochlorothiazide [Lisinopril-Hctz 20-12.5 mg Tab] 1 tab PO DAILY 07/03/17 [place] Carbonate [[place] Carbonate ER] 300 mg PO BID 07/03/17 Metoprolol Succinate [Toprol Xl] 50 mg PO DAILY 07/03/17 Potassium Chloride 20 meq PO DAILY 07/03/17 Warfarin Sodium [Coumadin] 5 mg PO DIRECTED 07/03/17 Warfarin Sodium [Coumadin] 7.5 mg PO DIRECTED 07/03/17 - Past Medical/Surgical History Diabetic: Yes -: A fib (Mar 2017) -: Depression - Family History Mother Medical History: Hypertension, Diabetes - Social History Smoking Status: Never smoker Alcohol use: No CD- Drugs: No Caffeine use: Yes Place of Residence: Home Review of Systems 10-point ROS is otherwise unremarkable General: Weakness, Malaise Physical Examination Temp Pulse Resp BP Pulse Ox 97.4 F 75 18 117/68 94 07/03/17 16:00 07/03/17 16:00 07/03/17 16:00 07/03/17 16:00 07/03/17 16:00 General: In no apparent distress, Cooperative HEENT: Normocephalic Neck: Supple, JVD not distended Respiratory: Clear to auscultation bilaterally, Normal air movement Cardiovascular: No edema, Regular rate/rhythm, No rubs Gastrointestinal: Soft and benign, Non-distended Musculoskeletal: No clubbing, No contractures Integumentary: No rashes, No cyanosis Neurological: Normal speech Blood work reviewed in the chart. Initial blood work: Na 125; Cr 6.57 Imagings Data: Reason for Exam: ARTEMIO Report Status: Signed EXAM DESCRIPTION: US - Renal Ultrasound-Complete - 07/02/2017 8:19 pm CLINICAL HISTORY: . Acute renal insufficiency COMPARISON: CT scan on the same date FINDINGS: The right kidney measures 12 cm with increased echotexture. The left kidney measures 12 cm with increased echotexture. Hydronephrosis is not seen. Small benign-appearing renal cysts are present IMPRESSION: Increased renal echotexture consistent with parenchymal disease No hydronephrosis Small benign-appearing renal cysts Conclusions/Impression: A/ ARTEMIO of unclear etiology but may due to severe hypovolemia in the setting of ANTWAN / diuretic. [place] Toxicity; HD not indicated at this time. Hyponatremia. Hypokalemia. Acidosis. Anemia in chronic illness. HTN controlled. P/ Continue current POC and Medications. Adjust bicarb IVF. Give an IVF bolus. Replace KCl. Recheck BMP later today. Agree with Real catheter. No NSAIDs. AM labs. Daily weight. Thank you kindly for the consultation.
[2017-07-03] MEDS: SODIUM CHLORIDE 1 GM TAB PO SCH ×2 (19:38→21:54)
[2017-07-04] MEDS: KCL 20 MEQ/100 mL IVPB 20 MEQ/100 ML BAG IV SCH ×4 (03:40→17:38)
[2017-07-04 04:54] LABS: Absolute Monocytes 0.6 K/uL (0.1-1.3); Basophils % 0.7 % (0-1.3); Eosinophils % 2.1 % (0-4.4); Hematocrit 34.7 % (39.6-49.0); Lymphocytes % 16.6 % (15.3-44.8); MCH 28.3 pg (27.0-35.0); MCV 84.3 fL (80-100); MPV 8.7 fL (7.6-11.3); Monocytes % 5.1 % (3.3-12.3); RBC Red Blood Cell Count 4.12 M/uL (4.33-5.43)
[2017-07-04 05:08] LABS: Albumin 3.1 g/dL (3.2-5.5); Bilirubin Total 0.8 mg/dL (0.3-1.2); Protein, Total 6.6 g/dL (6.0-8.3)
[2017-07-04 05:29] LABS: Potassium 2.7 mEq/L (3.6-5.0)
[2017-07-04 05:40] LABS: Urine Appearance CLEAR; Urine Bilirubin NEGATIVE (NEG); Urine Blood TRACE (NEG); Urine Color YELLOW; Urine Glucose NEGATIVE (NEG); Urine Protein 2+ (NEG); Urine Urobilinogen 0.2 mg/dL (0.2-1.0); Urine pH 7.5 (5.0-7.0)
[2017-07-04 05:42] LABS: UR CREAT 44.9 mg/dL; UR MICROALBUMIN 86.5 mg/dL (< 1.9)
[2017-07-04 06:01] LABS: Urine RBC <5 /HPF (NONE SEEN)
[2017-07-04 06:02] LABS: Urine Bacteria <20 /HPF (NONE SEEN); Urine Culture Reflex Order NOT NEEDED
[2017-07-04] MEDS: INSULIN -REGULAR HUMAN 50 UNIT/0.5 ML ML SQ SCH ×4 (08:22→21:36)
[2017-07-04] MEDS: SODIUM CHLORIDE 1 GM TAB PO SCH ×4 (08:22→21:36)
[2017-07-04] MEDS: Ringers Lactate 1,000 ML IV SCH ×2 (09:03→17:38)
[2017-07-04] MEDS: POTASSIUM 25 MEQ EFFERV TAB PO SCH ×3 (09:03→21:36)
--- NOTE | 2017-07-04 15:59 | P.PN ---
Subjective Date of Service: 07/04/17 Chief Complaint: Acute kidney injury; altered mental status The patient feels better with more alert and he has no new complaints Physical Examination - Vital Signs Temperature: 97.8 F Blood Pressure: 112/84 Pulse: 70 Respirations: 18 Pulse Ox (%): 97 - Physical Exam General: Alert, In no apparent distress HEENT: Atraumatic, PERRLA, EOMI Neck: Supple, JVD not distended Respiratory: Clear to auscultation bilaterally, Normal air movement Cardiovascular: Regular rate/rhythm, Normal S1 S2 Gastrointestinal: Normal bowel sounds, No tenderness Musculoskeletal: No tenderness Integumentary: No rashes Neurological: Normal speech, Normal tone, Normal affect Lymphatics: No axilla or inguinal lymphadenopathy - Studies Medications List Reviewed: Yes Assessment And Plan - Current Problems (Diagnosis) (1) [place] toxicity Onset Date: 07/03/17 Current Visit: Yes Status: Acute (2) Acute kidney injury Onset Date: 07/03/17 Current Visit: Yes Status: Acute (3) Bipolar disorder Onset Date: 07/03/17 Current Visit: Yes Status: Acute (4) Hypokalemia Onset Date: 07/03/17 Current Visit: Yes Status: Acute (5) Metabolic acidosis Onset Date: 07/03/17 Current Visit: Yes Status: Acute - Plan --continue intravenous fluid replacement --continue potassium replacement --follow-up lithium level --consult Nephrology
[2017-07-05] MEDS: Ringers Lactate 1,000 ML IV SCH ×4 (03:53→21:23)
--- NOTE | 2017-07-05 04:01 | PN ---
Date of Progress Note: 07/04/2017 Subjective: The patient is seen at the bedside. No overnight events reported. The patient appears to be more weak and is able to answer questions more clearly as compared to the notes written in the past 48 hours. Denies any fevers, chills, chest pain, shortness of breath, nausea, vomiting, or diar brianne. Objective: Vital Signs: Blood pressure 112/84, pulse 70, temperature 97.8. Input and output; 2740 in, 3900 out. General: No acute distress. Heart: Regular rate and rhythm. No murmurs, rubs, or gallops. Lungs: Clear to auscultation bilaterally. Abdomen: Soft, nontender, nondistended. Positive bowel sounds x4. Extremities: No significant edema. Genitourinary: Real catheter in place with clear yellow urine. Laboratory Data: CBC; WBC 11.9, hemoglobin 11.7, hematocrit 34.7, platelets 313. Serum chemistry; l ast potassium was 3.2. Today morning, sodium 129, potassium 2.7, chloride 93, CO2 28, BUN 82, creati nine 4.19, which improved from 92/5 yesterday and 102/5.7 at its peak on admission, Albumin is 3.1, g lucose 235. Last magnesium level was noted to be 1.9 at 10 a.m. Current Medications: The patient is on potassium chloride 25 mEq p.o. t.i.d., sodium chloride 1 g 4 times daily. The patient has received multiple fluid boluses, multiple doses of potassium. Impression: 1.Acute kidney injury, likely in the setting of the patient's poor p.o. intake and volume depletion. 2.[place] toxicity, improving. 3.Hyponatremia and hypokalemia, modest improvement. 4.Acidosis, metabolic acidosis, resolved. 5.Polyuria. Plan: The patient is on significant electrolyte replenishment. We will not increase potassium dose at this time given the patient's acute kidney injury. The patient's electrolytes and electrolyte imb alance is likely multifactorial. He did have a period of altered mental status in the setting of uri nary tract infection, which likely led to period of poor dietary intake. The patient also has been o n lithium for an unknown amount of time, but the patient may have electrolyte imbalance also from the patient's current polyuria. 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 However, at this time, the ATN appears to predominate. We do not have prior records of any renal function here, would ascertain if any surrounding hospitals or PCP office having records to show any evidence of renal disease. I will continue IV hydration at this time. Ac idosis had resolved. Bicarbonate based therapy will be continued. Continue electrolyte replacement. Continue telemetry monitoring. We will continue to follow. /PILO Voice ID: [id number] Report ID: [id number]
[2017-07-05 04:31] LABS: Albumin 2.8 g/dL (3.2-5.5); Bilirubin Total 0.8 mg/dL (0.3-1.2); Potassium 3.4 mEq/L (3.6-5.0); Protein, Total 6.2 g/dL (6.0-8.3)
[2017-07-05] MEDS: KCL 20 MEQ/100 mL IVPB 20 MEQ/100 ML BAG IV SCH ×2 (06:12→08:55)
[2017-07-05] MEDS: POTASSIUM 25 MEQ EFFERV TAB PO SCH ×3 (08:56→21:23)
[2017-07-05] MEDS: INSULIN -REGULAR HUMAN 50 UNIT/0.5 ML ML SQ SCH ×4 (08:56→21:22)
[2017-07-05] MEDS: SODIUM CHLORIDE 1 GM TAB PO SCH ×4 (08:56→21:23)
[2017-07-05 12:50] LABS: HBsAG Nonreactive (Nonreactive)
--- NOTE | 2017-07-05 17:36 | P.PN ---
Subjective Date of Service: 07/05/17 Chief Complaint: Acute kidney injury; altered mental status The patient feels better with more alert and he has no new complaints Physical Examination - Vital Signs Temperature: 97 F Blood Pressure: 120/73 Pulse: 88 Respirations: 18 Pulse Ox (%): 93 - Physical Exam General: Alert, In no apparent distress HEENT: Atraumatic, PERRLA, EOMI Neck: Supple, JVD not distended Respiratory: Clear to auscultation bilaterally, Normal air movement Cardiovascular: Regular rate/rhythm, Normal S1 S2 Gastrointestinal: Normal bowel sounds, No tenderness Musculoskeletal: No tenderness Integumentary: No rashes Neurological: Normal speech, Normal tone, Normal affect Lymphatics: No axilla or inguinal lymphadenopathy - Studies Medications List Reviewed: Yes Assessment And Plan - Current Problems (Diagnosis) (1) [place] toxicity Onset Date: 07/03/17 Current Visit: Yes Status: Acute (2) Acute kidney injury Onset Date: 07/03/17 Current Visit: Yes Status: Acute (3) Bipolar disorder Onset Date: 07/03/17 Current Visit: Yes Status: Acute (4) Hypokalemia Onset Date: 07/03/17 Current Visit: Yes Status: Acute (5) Metabolic acidosis Onset Date: 07/03/17 Current Visit: Yes Status: Acute - Plan --continue intravenous fluid replacement --continue potassium replacement --follow-up lithium level tomorrow morning --consult Nephrology
[2017-07-06 08:34] LABS: Albumin 3.3 g/dL (3.2-5.5); Bilirubin Total 0.9 mg/dL (0.3-1.2); Potassium 4.5 mEq/L (3.6-5.0)
[2017-07-06] MEDS: SODIUM CHLORIDE 1 GM TAB PO SCH (09:57)
[2017-07-06] MEDS: INSULIN -REGULAR HUMAN 50 UNIT/0.5 ML ML SQ SCH ×4 (09:58→20:58)
[2017-07-06] MEDS: POTASSIUM 25 MEQ EFFERV TAB PO SCH (09:58)
[2017-07-06] MEDS: Ringers Lactate 1,000 ML IV SCH ×2 (11:00→12:54)
--- NOTE | 2017-07-06 18:15 | P.PN ---
Subjective Date of Service: 07/06/17 Chief Complaint: Acute kidney injury; altered mental status The patient feels better with more alert and he has no new complaints Physical Examination - Vital Signs Temperature: 97.4 F Blood Pressure: 174/95 Pulse: 73 Respirations: 18 Pulse Ox (%): 97 - Physical Exam General: Alert, In no apparent distress HEENT: Atraumatic, PERRLA, EOMI Neck: Supple, JVD not distended Respiratory: Clear to auscultation bilaterally, Normal air movement Cardiovascular: Regular rate/rhythm, Normal S1 S2 Gastrointestinal: Normal bowel sounds, No tenderness Musculoskeletal: No tenderness Integumentary: No rashes Neurological: Normal speech, Normal tone, Normal affect Lymphatics: No axilla or inguinal lymphadenopathy - Studies Medications List Reviewed: Yes Assessment And Plan - Current Problems (Diagnosis) (1) [place] toxicity Onset Date: 07/03/17 Current Visit: Yes Status: Acute (2) Acute kidney injury Onset Date: 07/03/17 Current Visit: Yes Status: Acute (3) Bipolar disorder Onset Date: 07/03/17 Current Visit: Yes Status: Acute (4) Hypokalemia Onset Date: 07/03/17 Current Visit: Yes Status: Acute (5) Metabolic acidosis Onset Date: 07/03/17 Current Visit: Yes Status: Acute - Plan --continue intravenous fluid replacement --follow-up lithium level tomorrow morning --consult Nephrology --patient may be discharged home safely in 1 a 2 days after renal function has been improved and all electrolytes has been corrected --consult physical therapy
--- NOTE | 2017-07-06 22:00 | P.PN ---
Date of Service: 07/05/17 Vital Signs Temp Pulse Resp BP Pulse Ox 97.4 F 73 18 174/95 H 97 07/06/17 18:15 07/06/17 18:15 07/06/17 18:15 07/06/17 18:15 07/06/17 18:15 Medications Acetaminophen (Tylenol -Extra Strength) 500 mg PO Q6H PRN PRN Reason: [id number] Stop: 08/01/17 19:37 Dextrose (Dextrose 50% Syringe) 12.5 gm IV PRN PRN PRN Reason: HYPOGLYCEMIA Stop: 08/02/17 12:16 Glucagon (Glucagen) 1 mg IM 1X PRN PRN Reason: HYPOGLYCEMIA Stop: 08/02/17 12:16 Lactated Ringer's (Lactated Ringers) 1,000 mls @ 75 mls/hr IV .[id number] [facility] Stop: 08/05/17 12:21 Last Admin: 07/06/17 12:54 Dose: 1,000 mls Insulin Human Regular (Novolin -R) 0 unit SQ ACHS NELA PRN Reason: Protocol Stop: 08/02/17 16:31 Last Admin: 07/06/17 20:58 Dose: 3 unit Morphine Sulfate (Morphine Sulfate) 2 mg IV Q4H PRN PRN Reason: PAIN MODERATE TO SEVERE Stop: 08/01/17 19:37 Ondansetron HCl (Zofran) 4 mg IV Q8H PRN PRN Reason: NAUSEA / VOMITING Stop: 08/01/17 19:37 Sodium Chloride (Normal Saline Flush) 10 ml IV BID [facility] Stop: 08/01/17 21:01 Last Admin: 07/06/17 20:59 Dose: 10 ml Assessment/ Plan: Nephrology. Feeling better since admission. CPS stable without CP or SOB. No edema. No acute events overnight. Vitals, medications, blood work and imaging reviewed in the chart. General: In no apparent distress, Cooperative HEENT: Normocephalic Neck: Supple, JVD not distended Respiratory: Clear to auscultation bilaterally, Normal air movement Cardiovascular: No edema, Regular rate/rhythm, No rubs Gastrointestinal: Soft and benign, Non-distended Musculoskeletal: No clubbing, No contractures Integumentary: No rashes, No cyanosis Neurological: Normal speech Blood work reviewed in the chart. Initial blood work: Na 125; Cr 6.57 Imagings Data: Reason for Exam: ARTEMIO EXAM DESCRIPTION: US - Renal Ultrasound-Complete - 07/02/2017 8:19 pm CLINICAL HISTORY: . Acute renal insufficiency COMPARISON: CT scan on the same date FINDINGS: The right kidney measures 12 cm with increased echotexture. The left kidney measures 12 cm with increased echotexture. Hydronephrosis is not seen. Small benign-appearing renal cysts are present IMPRESSION: Increased renal echotexture consistent with parenchymal disease No hydronephrosis Small benign-appearing renal cysts Conclusions/Impression: A/ ARTEMIO of unclear etiology but may due to severe hypovolemia in the setting of ANTWAN / diuretic. Proteinuria. [place] Toxicity; HD not indicated at this time. Hyponatremia. Hypokalemia. Acidosis. Anemia in chronic illness. HTN controlled. P/ Continue current POC and Medications. Continue IVF. Agree with Real catheter. No NSAIDs. AM labs. Daily weight.
--- NOTE | 2017-07-06 22:01 | P.PN ---
Date of Service: 07/06/17 Vital Signs Temp Pulse Resp BP Pulse Ox 97.4 F 73 18 174/95 H 97 07/06/17 18:15 07/06/17 18:15 07/06/17 18:15 07/06/17 18:15 07/06/17 18:15 Medications Acetaminophen (Tylenol -Extra Strength) 500 mg PO Q6H PRN PRN Reason: [id number] Stop: 08/01/17 19:37 Dextrose (Dextrose 50% Syringe) 12.5 gm IV PRN PRN PRN Reason: HYPOGLYCEMIA Stop: 08/02/17 12:16 Glucagon (Glucagen) 1 mg IM 1X PRN PRN Reason: HYPOGLYCEMIA Stop: 08/02/17 12:16 Lactated Ringer's (Lactated Ringers) 1,000 mls @ 75 mls/hr IV .[id number] [facility] Stop: 08/05/17 12:21 Last Admin: 07/06/17 12:54 Dose: 1,000 mls Insulin Human Regular (Novolin -R) 0 unit SQ ACHS NELA PRN Reason: Protocol Stop: 08/02/17 16:31 Last Admin: 07/06/17 20:58 Dose: 3 unit Morphine Sulfate (Morphine Sulfate) 2 mg IV Q4H PRN PRN Reason: PAIN MODERATE TO SEVERE Stop: 08/01/17 19:37 Ondansetron HCl (Zofran) 4 mg IV Q8H PRN PRN Reason: NAUSEA / VOMITING Stop: 08/01/17 19:37 Sodium Chloride (Normal Saline Flush) 10 ml IV BID [facility] Stop: 08/01/17 21:01 Last Admin: 07/06/17 20:59 Dose: 10 ml Assessment/ Plan: Nephrology. Feeling better since admission. CPS stable without CP or SOB. No edema. No acute events overnight. Vitals, medications, blood work and imaging reviewed in the chart. General: In no apparent distress, Cooperative HEENT: Normocephalic Neck: Supple, JVD not distended Respiratory: Clear to auscultation bilaterally, Normal air movement Cardiovascular: No edema, Regular rate/rhythm, No rubs Gastrointestinal: Soft and benign, Non-distended Musculoskeletal: No clubbing, No contractures Integumentary: No rashes, No cyanosis Neurological: Normal speech Blood work reviewed in the chart. Initial blood work: Na 125; Cr 6.57 Imagings Data: Reason for Exam: ARTEMIO EXAM DESCRIPTION: US - Renal Ultrasound-Complete - 07/02/2017 8:19 pm CLINICAL HISTORY: . Acute renal insufficiency COMPARISON: CT scan on the same date FINDINGS: The right kidney measures 12 cm with increased echotexture. The left kidney measures 12 cm with increased echotexture. Hydronephrosis is not seen. Small benign-appearing renal cysts are present IMPRESSION: Increased renal echotexture consistent with parenchymal disease No hydronephrosis Small benign-appearing renal cysts Conclusions/Impression: A/ ARTEMIO of unclear etiology but may due to severe hypovolemia in the setting of ANTWAN / diuretic. Proteinuria. [place] Toxicity; HD not indicated at this time. Hyponatremia. Hypokalemia. Acidosis. Anemia in chronic illness. HTN controlled. P/ Continue current POC and Medications. Continue IVF. Agree with Real catheter. No NSAIDs. AM labs. Daily weight.
[2017-07-07] MEDS: Ringers Lactate 1,000 ML IV SCH ×2 (02:17→17:20)
[2017-07-07] MEDS: INSULIN -REGULAR HUMAN 50 UNIT/0.5 ML ML SQ SCH ×4 (09:07→20:54)
[2017-07-07 13:31] LABS: Absolute Lymphocytes (CBC) 1.5 K/uL (0.7-4.9); Absolute Monocytes 0.6 K/uL (0.1-1.3); Absolute Neutrophil 12.7 K/uL (1.8-8.0); Basophils % 0.5 % (0-1.3); Eosinophils % 1.3 % (0-4.4); Hematocrit 39.6 % (39.6-49.0); MCH 27.6 pg (27.0-35.0); MCV 86.7 fL (80-100); MPV 8.6 fL (7.6-11.3); Monocytes % 3.9 % (3.3-12.3); RBC Red Blood Cell Count 4.57 M/uL (4.33-5.43)
[2017-07-07 13:49] LABS: Albumin 3.5 g/dL (3.2-5.5); Bilirubin Total 0.8 mg/dL (0.3-1.2); Magnesium 1.6 mg/dL (1.8-2.5); Phosphorus 2.4 mg/dL (2.5-4.3); Potassium 4.4 mEq/L (3.6-5.0); Protein, Total 7.3 g/dL (6.0-8.3)
[2017-07-07] MEDS ORDERED: Magnesium Sulfate 2gm IVPB 2 G/50 ML BAG IV ONE (14:07)
[2017-07-07] MEDS ORDERED: HYDRALAZINE HCL 20 MG/ML VIAL IV PRN (14:25)
--- NOTE | 2017-07-07 16:37 | PN ---
Date of Progress Note: 07/07/2017 Subjective: The patient is currently sitting in chair. He looks comfortable. He really wants to go home. No chest pain or abdominal pain. He sits at the bedside. He is eating well. Bowel movement okay and had a Real catheter. Physical Examination: Vital Signs: Currently vital signs, blood pressure is 164/85, respiratory rate 18, pulse 85, tempera ture 97. General: He is fully alert and oriented x3. Does not look in any distress. HEENT: Atraumatic, normocephalic. PERRLA. Mucosa is moist. Neck: Supple. No JVD. Chest: Clear to auscultation. Good air entry. Heart: Regular rate and rhythm. S1, S2 normal. No gallop or murmur. Abdomen: Soft, nontender. No masses. No hepatosplenomegaly. Positive bowel sounds. Extremities: No clubbing, no cyanosis, no edema. No calf tenderness. Neurologic: Grossly intact. Laboratory Data: Today showed CBC with a white blood cell 15.1, hemoglobin 12, platelet 284. CMP wi th sodium 131, chloride 97, BUN of 36, creatinine of 2.9, glucose 284, magnesium 1.6, phosphorus 2.4. Assessment And Plan: 1.Acute renal failure, improving significantly. Creatinine is down from 6 to 2. The patient is sti ll in hydration. We will keep Real catheter for now. 2.[place] toxicity secondary to acute renal failure. His lithium level today is pending, but it was down to 1.7, which is still high above 1.2 to cut off. 3.Bipolar disorder, was on lithium, but at this point, is on hold. 4.Hypokalemia, resolved. 5.Hypomagnesemia. We will replace IV today. 6.Hyponatremia, mild. 7.Ambulate. 8.Leukocytosis. No fever. UA was negative on the 13 of June, we will observe for now. 9.Deep vein thrombosis prophylaxis. We will ambulate. The patient is relatively young and he is no t in bed. MT/MODL Voice ID: [id number] Report ID: [id number]
[2017-07-07 21:33] LABS: C-ANCA Anti-Proteinase 3 <1.0 AI (<1.0); P-ANCA Anti-Myeloperoxidase Ab <1.0 AI (<1.0)
[2017-07-08] MEDS: Ringers Lactate 1,000 ML IV SCH ×2 (03:32→17:40)
[2017-07-08] MEDS: INSULIN -REGULAR HUMAN 50 UNIT/0.5 ML ML SQ SCH ×4 (09:14→23:49)
[2017-07-08 13:33] LABS: Albumin 3.5 g/dL (3.2-5.5); Bilirubin Total 0.9 mg/dL (0.3-1.2); Magnesium 2.1 mg/dL (1.8-2.5); Protein, Total 7.3 g/dL (6.0-8.3)
[2017-07-08 13:36] LABS: Potassium 4.7 mEq/L (3.6-5.0)
[2017-07-08 13:55] LABS: Absolute Lymphocytes (CBC) 2.7 K/uL (0.7-4.9); Absolute Monocytes 0.8 K/uL (0.1-1.3); Absolute Neutrophil 17.2 K/uL (1.8-8.0); Basophils % 0.5 % (0-1.3); Eosinophils % 1.2 % (0-4.4); Hematocrit 38.2 % (39.6-49.0); Lymphocytes % 12.8 % (15.3-44.8); MCH 27.6 pg (27.0-35.0); MCV 86.6 fL (80-100); MPV 8.5 fL (7.6-11.3); Monocytes % 3.9 % (3.3-12.3); RBC Red Blood Cell Count 4.42 M/uL (4.33-5.43)
[2017-07-08] MEDS ORDERED: AMLODIPINE 5 MG TAB PO SCH (14:00)
[2017-07-08 14:17] LABS: Platelet Estimate ADEQ
[2017-07-08 14:18] LABS: Blood Morphology Comment NOT SEEN (NOT SEEN)
[2017-07-08] MEDS: SITAGLIPTIN PHOS 100 MG TAB PO SCH (15:36)
[2017-07-08 15:53] LABS: Urine Appearance CLEAR; Urine Bilirubin NEGATIVE (NEG); Urine Blood TRACE (NEG); Urine Color YELLOW; Urine Glucose 1+ (NEG); Urine Protein 3+ (NEG); Urine pH 7.5 (5.0-7.0)
[2017-07-08] MEDS: METOPROLOL XL 50 MG TAB PO SCH ×2 (16:00→21:00)
[2017-07-08 16:29] LABS: Urine Bacteria <20 /HPF (NONE SEEN); Urine Culture Reflex Order REFLEXED
--- NOTE | 2017-07-08 18:05 | PN ---
Subjective: Currently, he is sitting in a chair. He looks comfortable. at bedside. No chest pain. No abdominal pain. He refused his labs this morning, so we do not have the labs. Yet his blo od glucose being high. His blood pressure has been high. Physical Examination: Vital Signs: Currently vital signs, blood pressure is 173/98, respiratory rate 18, pulse 83, tempera ture 98. General: He is fully alert, oriented x3. Does not look in any distress. HEENT: Atraumatic, normocephalic. PERRLA. Oral mucosa is moist. Neck: Supple. No JVD. No carotid bruits. Chest: Clear to auscultation. Good air entry. Heart: Regular rate and rhythm. S1 and S2 normal. No gallop or murmur. Abdomen: Soft, nontender, with no masses. No hepatosplenomegaly. Positive bowel sounds. Extremities: No clubbing, cyanosis, or edema. No calf tenderness. Neurologic: Grossly intact. Cranial exam 2 through 12 intact. Normal sensation. Normal reflexes. Laboratory Data: All pending today including lithium level. The patient hard stick glucose was 241, Accu-Chek. Assessment And Plan: 1.Acute renal failure. Continues to improve. Creatinine today is pending but yesterday was down t o 2. Keep Real catheter. Continue hydration and encourage oral intake. 2.Recent toxicity secondary to acute renal failure. His lithium level is pending today. 3.Hypertension not well controlled. I will add Norvasc. He is already on hydralazine p.r.n. 4.Diabetes mellitus. The patient not on his home medicine as that is not available on the pharmacy so we will start him on Januvia 50 mg once a day given his renal insufficiency and check hemoglobin A 1c. I will change his insulin sliding scale from low to intermediate. 5.Hypokalemia, resolved yesterday, pending today. 6.Hypomagnesemia. We replace the IV yesterday, pending today. 7.Discharge plan given on his labs improvement and getting his blood pressure and diabetes under bet ter control. Hopefully will aim for tomorrow morning. Discussed extensively with his . NUHA/PILO Voice ID: [id number] Report ID: [id number]
[2017-07-09] MEDS: Ringers Lactate 1,000 ML IV SCH (06:32)
[2017-07-09] MEDS: INSULIN -REGULAR HUMAN 50 UNIT/0.5 ML ML SQ SCH ×4 (07:30→22:37)
[2017-07-09 08:20] LABS: Absolute Monocytes 0.6 K/uL (0.1-1.3); Absolute Neutrophil 12.2 K/uL (1.8-8.0); Basophils % 0.4 % (0-1.3); Eosinophils % 2.7 % (0-4.4); Hematocrit 39.3 % (39.6-49.0); Lymphocytes % 12.9 % (15.3-44.8); MCH 28.2 pg (27.0-35.0); MCV 87.9 fL (80-100); RBC Red Blood Cell Count 4.46 M/uL (4.33-5.43)
[2017-07-09] MEDS ORDERED: HYDRALAZINE HCL 25 MG TABLET PO SCH ×2 (09:00→16:54)
[2017-07-09 09:02] LABS: Magnesium 1.9 mg/dL (1.8-2.5); Potassium 4.4 mEq/L (3.6-5.0)
[2017-07-09 09:44] LABS: A1c Component 1.15 mg/dL; Hemoglobin A1c 10.2 % (4-6.0)
--- NOTE | 2017-07-09 09:47 | P.PN ---
Subjective Date of Service: 07/09/17 Primary Care Provider: Dr. Newton Chief Complaint: Acute kidney injury; altered mental status Subjective: Other (Without any nausea, vomiting. Patient with some anxiety. Patient not wanting to get lab drawn frequently.) Physical Examination - Vital Signs Temperature: 97.8 F Blood Pressure: 171/108 Pulse: 85 Respirations: 20 Pulse Ox (%): 99 - Physical Exam General: Alert, In no apparent distress, Cooperative HEENT: Atraumatic Neck: Supple Respiratory: Clear to auscultation bilaterally, Normal air movement Cardiovascular: Normal pulses, Regular rate/rhythm Gastrointestinal: Normal bowel sounds, Soft and benign, Non-distended, No tenderness, No masses, No rebound, No guarding Musculoskeletal: No erythema, No tenderness, No warmth Integumentary: No tenderness/swelling, No erythema, No warmth, No cyanosis Neurological: Normal speech, Normal strength at 5/5 x4 extr, Normal tone, Abnormal affect (Increased anxiety noted.) - Studies Medications List Reviewed: Yes Assessment & Plan - Problems (Diagnosis) (1) Diabetes mellitus Current Visit: Yes Status: Chronic Plan: Will check A1c. Will continue with sliding scale. Patient taking oral medication at home. Qualifiers: Diabetes mellitus type: type 2 Diabetes mellitus dba manager insulin use: without care home use Diabetes mellitus complication status: with other specified complication Qualified Code(s): E11.69 - Type 2 diabetes mellitus with other specified complication (2) Acute kidney injury Onset Date: 07/03/17 Current Visit: Yes Status: Acute Plan: Patient with acute renal injury likely with underlying chronic renal disease. Will continue with IV fluid hydration. Patient had not been eating or drinking well. Nephrology has been consulted. Will address with nephrology. Renal ultrasound shows parenchymal disease. Patient with noted lithium toxicity. Will continue to hold lithium at this time. (3) Bipolar disorder Onset Date: 07/03/17 Current Visit: Yes Status: Chronic Plan: Patient with lithium toxicity. Will continue to hold lithium at this time due to acute renal failure. Will continue with Haldol. Qualifiers: Active/Remission status: remission status unspecified Qualified Code(s): F31.9 - Bipolar disorder, unspecified (4) Hypokalemia Onset Date: 07/03/17 Current Visit: Yes Status: Acute Plan: This has resolved. Will continue to monitor. (5) Hyponatremia Onset Date: 07/03/17 Current Visit: Yes Status: Acute Plan: Will adjust IV fluids to normal saline. Will monitor this closely. Will discuss with nephrology. (6) [place] toxicity Onset Date: 07/03/17 Current Visit: Yes Status: Acute Plan: Patient with lithium toxicity. Scott level had been trending down. Repeat lithium today shows elevation. Will continue to hold lithium at this time. Will discuss with nephrology. Qualifiers: Encounter type: initial encounter Injury intent: undetermined intent Qualified Code(s): T56.894A - Toxic effect of other metals, undetermined, initial encounter (7) Metabolic acidosis Onset Date: 07/03/17 Current Visit: Yes Status: Acute Plan: Will discuss with nephrology (8) Hypertension Current Visit: Yes Status: Chronic Plan: Blood pressure elevated. Patient taking metoprolol at home. Will continue to hold lisinopril/hydrochlorothiazide. Will start hydralazine for better blood pressure control. Qualifiers: Hypertension type: essential hypertension Qualified Code(s): I10 - Essential (primary) hypertension (9) Atrial fibrillation Current Visit: Yes Status: Chronic Plan: Will continue with rate control medication-metoprolol. Will restart his chronic anti coagulation therapy-Coumadin. Qualifiers: Atrial fibrillation type: chronic Qualified Code(s): I48.2 - Chronic atrial fibrillation (10) Chronic anticoagulation Current Visit: Yes Status: Chronic Plan: Will restart his Coumadin. Discharge Plan: Home Plan to discharge in: 48 Hours Time Spent Managing Pts Care (In Minutes): 55
[2017-07-09] MEDS ORDERED: NA CHLORIDE 0.9% 1,000 ML IV SCH (10:00)
[2017-07-09] MEDS: HALOPERIDOL 2 MG TAB PO SCH (10:02)
[2017-07-09] MEDS: METOPROLOL XL 50 MG TAB PO SCH (10:02)
[2017-07-09] MEDS: SITAGLIPTIN PHOS 100 MG TAB PO SCH (10:03)
[2017-07-09] MEDS ORDERED: FUROSEMIDE 40 MG/4 ML VIAL IV ONE (16:54)
--- NOTE | 2017-07-09 16:55 | P.PN ---
Date of Service: 07/09/17 Vital Signs Temp Pulse Resp BP Pulse Ox 97.8 F 85 20 171/108 H 99 07/09/17 09:49 07/09/17 10:02 07/09/17 09:49 07/09/17 10:02 07/09/17 09:49 Medications Acetaminophen (Tylenol -Extra Strength) 500 mg PO Q6H PRN PRN Reason: [id number] Stop: 08/01/17 19:37 Dextrose (Dextrose 50% Syringe) 12.5 gm IV PRN PRN PRN Reason: HYPOGLYCEMIA Stop: 08/02/17 12:16 Glucagon (Glucagen) 1 mg IM 1X PRN PRN Reason: HYPOGLYCEMIA Stop: 08/02/17 12:16 Haloperidol (Haldol) 2 mg PO DAILY [facility] Stop: 08/08/17 09:01 Last Admin: 07/09/17 10:02 Dose: 2 mg Hydralazine HCl (Apresoline) 10 mg IV Q6HP PRN PRN Reason: HIGH BP Stop: 08/06/17 14:26 Last Admin: 07/08/17 11:53 Dose: 10 mg Hydralazine HCl (Apresoline) 50 mg PO BID [facility] Stop: 08/08/17 09:01 Last Admin: 07/09/17 10:03 Dose: 50 mg Sodium Chloride (Ns 1000 Ml Ivbag) 1,000 mls @ 100 mls/hr IV .Q10H [facility] Stop: 08/08/17 10:01 Last Admin: 07/09/17 10:00 Dose: Not Given Insulin Human Regular (Novolin -R) 0 unit SQ ACHS NELA PRN Reason: Protocol Stop: 08/02/17 16:31 Last Admin: 07/09/17 11:30 Dose: Not Given Metoprolol Succinate (Toprol Xl) 50 mg PO DAILY [facility] Stop: 08/07/17 16:01 Last Admin: 07/09/17 10:02 Dose: 50 mg Ondansetron HCl (Zofran) 4 mg IV Q8H PRN PRN Reason: NAUSEA / VOMITING Stop: 08/01/17 19:37 Pantoprazole Sodium (Protonix Tab) 40 mg PO DAILYAC [facility] Stop: 08/09/17 06:31 Sitagliptin Phosphate (Januvia) 50 mg PO DAILY NELA Stop: 08/07/17 14:01 Last Admin: 07/09/17 10:03 Dose: 50 mg Sodium Chloride (Normal Saline Flush) 10 ml IV BID [facility] Stop: 08/01/17 21:01 Last Admin: 07/09/17 10:03 Dose: 10 ml Warfarin Sodium (Coumadin) 5 mg PO [id number]@1700 NELA Stop: 08/08/17 17:01 Warfarin Sodium (Coumadin) 7.5 mg PO Mason@1700 [facility] Stop: 08/14/17 17:01 Assessment/ Plan: Nephrology. Doing well. CPS stable without CP or SOB. +Edema No acute events overnight. reports no lithium PO while at the hospital. Vitals, medications, blood work and imaging reviewed in the chart. General: In no apparent distress, Cooperative HEENT: Normocephalic Neck: Supple, JVD not distended Respiratory: Clear to auscultation bilaterally, Normal air movement Cardiovascular: No edema, Regular rate/rhythm, No rubs Gastrointestinal: Soft and benign, Non-distended Musculoskeletal: No clubbing, No contractures Integumentary: No rashes, No cyanosis Neurological: Normal speech Blood work reviewed in the chart. Initial blood work: Na 125; Cr 6.57 Imagings Data: Reason for Exam: ARTEMIO EXAM DESCRIPTION: US - Renal Ultrasound-Complete - 07/02/2017 8:19 pm CLINICAL HISTORY: . Acute renal insufficiency COMPARISON: CT scan on the same date FINDINGS: The right kidney measures 12 cm with increased echotexture. The left kidney measures 12 cm with increased echotexture. Hydronephrosis is not seen. Small benign-appearing renal cysts are present IMPRESSION: Increased renal echotexture consistent with parenchymal disease No hydronephrosis Small benign-appearing renal cysts Conclusions/Impression: A/ ARTEMIO of unclear etiology but may due to severe hypovolemia in the setting of ANTWAN / diuretic. Proteinuria. [place] Toxicity; HD not indicated at this time. Hyponatremia. Hypokalemia. Acidosis. Anemia in chronic illness. HTN controlled. P/ Continue current POC and Medications. Reduce IVF. Start Doxazosin. Give a dose of lasix. Recheck lithium level in am. No NSAIDs. AM labs. Daily weight.
[2017-07-09] MEDS: NA CHLORIDE 0.9% 1,000 ML IV SCH (17:00)
[2017-07-09] MEDS ORDERED: WARFARIN SODIUM 5 MG TAB PO SCH (17:00)
[2017-07-09] MEDS ORDERED: DOXAZOSIN 2 MG TAB PO SCH (21:00)
[2017-07-10] MEDS: NA CHLORIDE 0.9% 1,000 ML IV SCH (06:20)
[2017-07-10] MEDS ORDERED: PANTOPRAZOLE 40MG TABLET PO SCH (06:30)
[2017-07-10 06:51] LABS: Protime INR 1.03
[2017-07-10 06:52] LABS: Absolute Lymphocytes (CBC) 2.2 K/uL (0.7-4.9); Absolute Monocytes 0.6 K/uL (0.1-1.3); Absolute Neutrophil 8.7 K/uL (1.8-8.0); Basophils % 0.6 % (0-1.3); Eosinophils % 2.7 % (0-4.4); Hematocrit 31.2 % (39.6-49.0); Lymphocytes % 18.4 % (15.3-44.8); MCH 27.7 pg (27.0-35.0); MCV 85.9 fL (80-100); MPV 8.5 fL (7.6-11.3); Monocytes % 4.8 % (3.3-12.3); RBC Red Blood Cell Count 3.63 M/uL (4.33-5.43)
[2017-07-10 07:22] LABS: Magnesium 1.9 mg/dL (1.8-2.5); Potassium 3.8 mEq/L (3.6-5.0); Uric Acid 13.9 mg/dL (4.8-8.7)
[2017-07-10] MEDS: INSULIN -REGULAR HUMAN 50 UNIT/0.5 ML ML SQ SCH ×2 (07:30→11:30)
[2017-07-10] MEDS: METOPROLOL XL 50 MG TAB PO SCH (08:10)
[2017-07-10] MEDS: SITAGLIPTIN PHOS 100 MG TAB PO SCH (09:00)
--- NOTE | 2017-07-10 10:05 | P.PN ---
Subjective Date of Service: 07/10/17 (continued increase in creatinine/BUN, pt with some hypotension, 116/57, will get orthostatics, metoprolol held this am) Primary Care Provider: Dr. Newton Chief Complaint: Acute kidney injury; altered mental status Physical Examination - Vital Signs Temperature: 97.2 F Blood Pressure: 116/57 Pulse: 75 Respirations: 18 Pulse Ox (%): 100 - Studies Medications List Reviewed: Yes
[2017-07-10] MEDS: HALOPERIDOL 2 MG TAB PO SCH (10:25)
--- NOTE | 2017-07-10 12:26 | P.DS ---
Admission Date: 07/02/17 Discharge Date: 07/10/17 Primary Care Provider: Dr. Newton Comment: Pt alert and oriented. Verbalizes understanding of need for follow up 1 wk Reason for Admission: Acute kidney injury; altered mental status Consultations: Patient evaluated per Dr. Cope. Will see patient in one week. - Problems (1) Acute kidney injury Onset Date: 07/03/17 Status: Acute (2) Hypokalemia Onset Date: 07/03/17 Status: Resolved (3) Hyponatremia Onset Date: 07/03/17 Status: Resolved (4) [place] toxicity Onset Date: 07/03/17 Status: Resolved QualifierTitle: Encounter type: initial encounter Injury intent: undetermined intent Qualified Code(s): T56.894A - Toxic effect of other metals , undetermined, initial encounter (5) Metabolic acidosis Onset Date: 07/03/17 Status: Resolved (6) Prerenal azotemia Onset Date: 07/03/17 Status: Acute (7) Atrial fibrillation Status: Chronic QualifierTitle: Atrial fibrillation type: chronic Qualified Code(s): I48.2 - Chronic atrial fibrillation (8) Bipolar disorder Onset Date: 07/03/17 Status: Chronic QualifierTitle: Active/Remission status: remission status unspecified Qualified Code(s): F31.9 - Bipolar disorder, unspecified Brief History of Present Illness: Patient became dehydrated, acute kidney injury, became toxic on lithium with AMS. Hospital Course: Hydrated, medications adjusted, lithium to within normal. Pt will f/u in one week for repeat labs and re-evaluation <Rosa Jackson - Last Filed: 07/10/17 12:21> Admission Date: 07/02/17 Discharge Date: 07/10/17 - Problems (1) Diabetes mellitus Status: Chronic Qualifiers: Diabetes mellitus type: type 2 Diabetes mellitus ferry terminal agent insulin use: without ferry terminal agent use Diabetes mellitus complication status: with other specified complication Qualified Code(s): E11.69 - Type 2 diabetes mellitus with other specified complication (2) Acute kidney injury Onset Date: 07/03/17 Status: Acute (3) Bipolar disorder Onset Date: 07/03/17 Status: Chronic Qualifiers: Active/Remission status: remission status unspecified Qualified Code(s): F31.9 - Bipolar disorder, unspecified (4) Hypokalemia Onset Date: 07/03/17 Status: Resolved (5) Hyponatremia Onset Date: 07/03/17 Status: Resolved (6) [place] toxicity Onset Date: 07/03/17 Status: Resolved Qualifiers: Encounter type: initial encounter Injury intent: undetermined intent Qualified Code(s): T56.894A - Toxic effect of other metals, undetermined, initial encounter (7) Metabolic acidosis Onset Date: 07/03/17 Status: Resolved (8) Hypertension Status: Chronic Qualifiers: Hypertension type: essential hypertension Qualified Code(s): I10 - Essential (primary) hypertension (9) Atrial fibrillation Status: Chronic Qualifiers: Atrial fibrillation type: chronic Qualified Code(s): I48.2 - Chronic atrial fibrillation (10) Chronic anticoagulation Status: Chronic Hospital Course: During his stay the patient was hydrated. Patient was off lithium during his stay. Case discussed at length with nephrology due to his chronic renal disease. At discharge, lithium has been decreased by half. He will continue with lithium daily. Recommendation is to recheck lithium level and BMP in 1 week. Patient will follow up with Nephrology to further monitor his renal function. Recommendation is for the patient to establish care with psychiatry to further assess. Patient may require a different medication for lithium if his renal function continues to decline as lithium may cause nephropathy. Patient with chronic renal disease. This remained stable and improved during his stay. Nephrology was consulted to further assess. Recommendation is for the patient to follow up with nephrology as an outpatient to further monitor. Patient with underlying diabetes. He will continue with his regimen. Further adjustment can be done by his PCP. Patient with hypertension. Medications have been adjusted. Patient will continue with metoprolol and Cardura which was started during his stay. Lisinopril/hydrochlorothiazide and his potassium medication has been discontinued. Patient will continue with Lasix but at a lower dose of 40 mg daily. Patient continue with a 1500 cc per day fluid restriction. Patient also has underlying atrial fibrillation and is taking chronic anti coagulation therapy-Coumadin. Recommendation is to continue with his medication for rate control and Coumadin. INR will need to be monitored by cardiology as an outpatient. <Dereje Ayoub - Last Filed: 07/10/17 17:23> Disposition: ROUTINE DISCHARGE Vital Signs/Physical Exam: Temp Pulse Resp BP Pulse Ox 97.2 F 75 18 116/57 L 100 07/10/17 10:05 07/10/17 10:05 07/10/17 10:05 07/10/17 10:05 07/10/17 10:05 Laboratory Data at Discharge: WBC 11.8 K/uL (4.3-10.9) H D 07/10/17 06:29 Hgb 10.1 g/dL (13.6-17.9) L D 07/10/17 06:29 Hct 31.2 % (39.6-49.0) L D 07/10/17 06:29 Plt Count 274 K/uL (152-406) 07/10/17 06:29 PT 12.1 SECONDS (9.5-12.5) 07/10/17 06:29 INR 1.03 07/10/17 06:29 APTT 28.0 SECONDS (24.3-36.9) 07/02/17 16:07 Sodium 129 mEq/L (135-145) L 07/10/17 06:29 Potassium 3.8 mEq/L (3.6-5.0) 07/10/17 06:29 BUN 41 mg/dL (6-20) H 07/10/17 06:29 Creatinine 3.19 mg/dL (0.61-1.24) H 07/10/17 06:29 Glucose 158 mg/dL (65-120) H 07/10/17 06:29 Uric Acid 13.9 mg/dL (4.8-8.7) H D 07/10/17 06:29 Phosphorus 2.4 mg/dL (2.5-4.3) L 07/07/17 13:23 Magnesium 1.9 mg/dL (1.8-2.5) 07/10/17 06:29 Total Bilirubin 0.9 mg/dL (0.3-1.2) 07/08/17 13:05 AST 19 IU/L (10-42) 07/08/17 13:05 ALT 14 IU/L (10-60) 07/08/17 13:05 Alkaline Phosphatase 183 IU/L (42-121) H 07/08/17 13:05 B-Natriuretic Peptide 379 pg/ml (<=100) H 07/10/17 06:29 <Rosa Jackson - Last Filed: 07/10/17 12:21> Vital Signs/Physical Exam: Temp Pulse Resp BP Pulse Ox 97 F 71 18 106/76 100 07/10/17 12:00 07/10/17 12:00 07/10/17 12:00 07/10/17 12:00 07/10/17 12:00 General: Alert, In no apparent distress, Oriented x3 HEENT: Atraumatic Neck: Supple Respiratory: Clear to auscultation bilaterally, Normal air movement Cardiovascular: Normal pulses, Regular rate/rhythm Gastrointestinal: Normal bowel sounds, Soft and benign, Non-distended Musculoskeletal: No erythema, No tenderness, No warmth Integumentary: No tenderness/swelling, No erythema, No warmth, No cyanosis Neurological: Normal speech, Normal strength at 5/5 x4 extr, Normal tone, Normal affect Laboratory Data at Discharge: WBC 11.8 K/uL (4.3-10.9) H D 07/10/17 06:29 Hgb 10.1 g/dL (13.6-17.9) L D 07/10/17 06:29 Hct 31.2 % (39.6-49.0) L D 07/10/17 06:29 Plt Count 274 K/uL (152-406) 07/10/17 06:29 PT 12.1 SECONDS (9.5-12.5) 07/10/17 06:29 INR 1.03 07/10/17 06:29 APTT 28.0 SECONDS (24.3-36.9) 07/02/17 16:07 Sodium 129 mEq/L (135-145) L 07/10/17 06:29 Potassium 3.8 mEq/L (3.6-5.0) 07/10/17 06:29 BUN 41 mg/dL (6-20) H 07/10/17 06:29 Creatinine 3.19 mg/dL (0.61-1.24) H 07/10/17 06:29 Glucose 158 mg/dL (65-120) H 07/10/17 06:29 Uric Acid 13.9 mg/dL (4.8-8.7) H D 07/10/17 06:29 Phosphorus 2.4 mg/dL (2.5-4.3) L 07/07/17 13:23 Magnesium 1.9 mg/dL (1.8-2.5) 07/10/17 06:29 Total Bilirubin 0.9 mg/dL (0.3-1.2) 07/08/17 13:05 AST 19 IU/L (10-42) 07/08/17 13:05 ALT 14 IU/L (10-60) 07/08/17 13:05 Alkaline Phosphatase 183 IU/L (42-121) H 07/08/17 13:05 B-Natriuretic Peptide 379 pg/ml (<=100) H 07/10/17 06:29 <Dereje Ayoub - Last Filed: 07/10/17 17:23> <Rosa Jackson - Last Filed: 07/10/17 12:21> Patient Discharge Instructions: 1. Patient will follow up with his PCP in 1-2 weeks to follow up this hospitalization. 2. Patient presented with lithium toxicity. At discharge, lithium has been decreased to once daily. Recommendation is for the patient to follow up with nephrology to further monitor his renal function. Recommendation to recheck CBC, BMP and lithium level in 1 week to monitor his progress. Recommendation is for the patient to follow up and establish care with psychiatry to consider changing medication if his renal function continues to decline. 3. Patient with chronic renal disease. Medications have been adjusted during his stay. Recommendation is to follow up with nephrology in 1-2 weeks to follow up this hospitalization. 4. Patient has hypertension. Medications have been adjusted. He will no longer take lisinopril/hydrochlorothiazide. Patient will continue with metoprolol and Cardura. Recommendation is to maintain blood pressures less 150/80. Further adjustment can be done by his PCP. 5. Patient has diabetes. Patient will continue with his regimen. Recommendation is to maintain blood sugars less 140 fasting and less than 200 after meals. Further adjustment can be done by his PCP. 6. Patient has atrial fibrillation and takes chronic anti coagulation therapy. He will continue with rate control medication-metoprolol and chronic anti coalition therapy- Coumadin. Recommendation to recheck INR as scheduled by Cardiology. 7. Patient may return to work after cleared by his PCP and nephrology as an outpatient. Time spent managing pt's care (in minutes): 55 <Dereje Ayoub - Last Filed: 07/10/17 17:23> Home Medications: Haloperidol Lactate 2 mg PO DAILY 07/03/17 Linagliptin [Tradjenta] 5 mg PO DAILY 07/03/17 Metoprolol Succinate [Toprol Xl*] 50 mg PO DAILY 07/03/17 Warfarin Sodium [Coumadin*] 5 mg PO DIRECTED 07/03/17 Warfarin Sodium [Coumadin*] 7.5 mg PO DIRECTED 07/03/17 Doxazosin [Cardura*] 2 mg PO BEDTIME #30 tab 07/10/17 Furosemide [Lasix*] 40 mg PO DAILY #30 tab 07/10/17 Ruthven Carbonate [Ruthven Carbonate ER] 300 mg PO DAILY #30 tablet.er 07/10/17 Pantoprazole [Protonix Tab*] 40 mg PO DAILYAC #30 tab 07/10/17 New Medications: Doxazosin [Cardura*] 2 mg PO BEDTIME #30 tab Furosemide [Lasix*] 40 mg PO DAILY #30 tab Ruthven Carbonate [Ruthven Carbonate ER] 300 mg PO DAILY #30 tablet.er Pantoprazole [Protonix Tab*] 40 mg PO DAILYAC #30 tab Followup: Arnulfo Cope DO [ACTIVE - CAN ADMIT] - 1-2 Weeks (call the office to make an appt. in 1-2 weeks. ) Lou Newton DO, DO [Primary Care Provider] - 1 Week (call the office to make an appointment in 1 week.) KERWIN WARREN [UNKNOWN] - 1-2 Weeks (call the offie to make an appointment in 2 weeks. )
--- NOTE | 2017-07-10 12:38 | P.DS ---
Admission Date: 07/02/17 Discharge Date: 07/10/17 Primary Care Provider: Dr. Newton Comment: Pt alert and oriented. Verbalizes understanding of need for follow up 1 wk Reason for Admission: Acute kidney injury; altered mental status Consultations: Patient evaluated per Dr. Cope. Will see patient in one week. - Problems (1) Acute kidney injury Onset Date: 07/03/17 Current Visit: Yes Status: Acute (2) Hypokalemia Onset Date: 07/03/17 Current Visit: Yes Status: Resolved (3) Hyponatremia Onset Date: 07/03/17 Current Visit: Yes Status: Resolved (4) [place] toxicity Onset Date: 07/03/17 Current Visit: Yes Status: Resolved Qualifiers: Encounter type: initial encounter Injury intent: undetermined intent Qualified Code(s): T56.894A - Toxic effect of other metals, undetermined, initial encounter (5) Metabolic acidosis Onset Date: 07/03/17 Current Visit: Yes Status: Resolved (6) Prerenal azotemia Onset Date: 07/03/17 Current Visit: Yes Status: Acute (7) Atrial fibrillation Current Visit: Yes Status: Chronic Qualifiers: Atrial fibrillation type: chronic Qualified Code(s): I48.2 - Chronic atrial fibrillation (8) Bipolar disorder Onset Date: 07/03/17 Current Visit: Yes Status: Chronic Qualifiers: Active/Remission status: remission status unspecified Qualified Code(s): F31.9 - Bipolar disorder, unspecified Brief History of Present Illness: Patient became dehydrated, acute kidney injury, became toxic on lithium with AMS. Hospital Course: Hydrated, medications adjusted, lithium to within normal. Pt will f/u in one week for repeat labs and re-evaluation Vital Signs/Physical Exam: Temp Pulse Resp BP Pulse Ox 97.2 F 75 18 116/57 L 100 07/10/17 10:05 07/10/17 10:05 07/10/17 10:05 07/10/17 10:05 07/10/17 10:05 Laboratory Data at Discharge: WBC 11.8 K/uL (4.3-10.9) H D 07/10/17 06:29 Hgb 10.1 g/dL (13.6-17.9) L D 07/10/17 06:29 Hct 31.2 % (39.6-49.0) L D 07/10/17 06:29 Plt Count 274 K/uL (152-406) 07/10/17 06:29 PT 12.1 SECONDS (9.5-12.5) 07/10/17 06:29 INR 1.03 07/10/17 06:29 APTT 28.0 SECONDS (24.3-36.9) 07/02/17 16:07 Sodium 129 mEq/L (135-145) L 07/10/17 06:29 Potassium 3.8 mEq/L (3.6-5.0) 07/10/17 06:29 BUN 41 mg/dL (6-20) H 07/10/17 06:29 Creatinine 3.19 mg/dL (0.61-1.24) H 07/10/17 06:29 Glucose 158 mg/dL (65-120) H 07/10/17 06:29 Uric Acid 13.9 mg/dL (4.8-8.7) H D 07/10/17 06:29 Phosphorus 2.4 mg/dL (2.5-4.3) L 07/07/17 13:23 Magnesium 1.9 mg/dL (1.8-2.5) 07/10/17 06:29 Total Bilirubin 0.9 mg/dL (0.3-1.2) 07/08/17 13:05 AST 19 IU/L (10-42) 07/08/17 13:05 ALT 14 IU/L (10-60) 07/08/17 13:05 Alkaline Phosphatase 183 IU/L (42-121) H 07/08/17 13:05 B-Natriuretic Peptide 379 pg/ml (<=100) H 07/10/17 06:29 Home Medications: Haloperidol Lactate 2 mg PO DAILY 07/03/17 Linagliptin [Tradjenta] 5 mg PO DAILY 07/03/17 Metoprolol Succinate [Toprol Xl*] 50 mg PO DAILY 07/03/17 Warfarin Sodium [Coumadin*] 5 mg PO DIRECTED 07/03/17 Warfarin Sodium [Coumadin*] 7.5 mg PO DIRECTED 07/03/17 Doxazosin [Cardura*] 2 mg PO BEDTIME #30 tab 07/10/17 Furosemide [Lasix*] 40 mg PO DAILY #30 tab 07/10/17 [place] Carbonate [[place] Carbonate ER] 300 mg PO DAILY #30 tablet.er 07/10/17 Pantoprazole [Protonix Tab*] 40 mg PO DAILYAC #30 tab 07/10/17 New Medications: Doxazosin [Cardura*] 2 mg PO BEDTIME #30 tab Furosemide [Lasix*] 40 mg PO DAILY #30 tab [place] Carbonate [[place] Carbonate ER] 300 mg PO DAILY #30 tablet.er Pantoprazole [Protonix Tab*] 40 mg PO DAILYAC #30 tab Diet: Renal Activity: Ad marcelle Followup: Lou Newton DO, DO [Primary Care Provider] - Arnulfo Cope DO [ACTIVE - CAN ADMIT] - KERWIN WARREN [UNKNOWN] - Time spent managing pt's care (in minutes): 15
--- NOTE | 2017-07-10 12:49 | P.DS ---
Admission Date: 07/02/17 Discharge Date: 07/10/17 Primary Care Provider: Dr. Newton Comment: Pt alert and oriented. Verbalizes understanding of need for follow up 1 wk Reason for Admission: Acute kidney injury; altered mental status Consultations: Patient evaluated per Dr. Cope. Will see patient in one week. - Problems (1) Acute kidney injury Onset Date: 07/03/17 Current Visit: Yes Status: Acute (2) Hypokalemia Onset Date: 07/03/17 Current Visit: Yes Status: Resolved (3) Hyponatremia Onset Date: 07/03/17 Current Visit: Yes Status: Resolved (4) [place] toxicity Onset Date: 07/03/17 Current Visit: Yes Status: Resolved Qualifiers: Encounter type: initial encounter Injury intent: undetermined intent Qualified Code(s): T56.894A - Toxic effect of other metals, undetermined, initial encounter (5) Metabolic acidosis Onset Date: 07/03/17 Current Visit: Yes Status: Resolved (6) Prerenal azotemia Onset Date: 07/03/17 Current Visit: Yes Status: Acute (7) Atrial fibrillation Current Visit: Yes Status: Chronic Qualifiers: Atrial fibrillation type: chronic Qualified Code(s): I48.2 - Chronic atrial fibrillation (8) Bipolar disorder Onset Date: 07/03/17 Current Visit: Yes Status: Chronic Qualifiers: Active/Remission status: remission status unspecified Qualified Code(s): F31.9 - Bipolar disorder, unspecified Brief History of Present Illness: Patient became dehydrated, acute kidney injury, became toxic on lithium with AMS. Hospital Course: Hydrated, medications adjusted, lithium to within normal. Pt will f/u in one week for repeat labs and re-evaluation Vital Signs/Physical Exam: Temp Pulse Resp BP Pulse Ox 97.2 F 75 18 116/57 L 100 07/10/17 10:05 07/10/17 10:05 07/10/17 10:05 07/10/17 10:05 07/10/17 10:05 General: Alert, Oriented x3, Other (mild anxiety, voices understanding of medication changes and need for f/u in 1 week) HEENT: Atraumatic Neck: Supple, 2+ carotid pulse no bruit Respiratory: Clear to auscultation bilaterally Cardiovascular: No edema Capillary refill: <2 Seconds Gastrointestinal: Normal bowel sounds, Soft and benign Musculoskeletal: No clubbing, No swelling Integumentary: No rashes, No breakdown, No tenderness/swelling Neurological: Normal gait, Normal speech, Normal affect Lymphatics: No axilla or inguinal lymphadenopathy Laboratory Data at Discharge: WBC 11.8 K/uL (4.3-10.9) H D 07/10/17 06:29 Hgb 10.1 g/dL (13.6-17.9) L D 07/10/17 06:29 Hct 31.2 % (39.6-49.0) L D 07/10/17 06:29 Plt Count 274 K/uL (152-406) 07/10/17 06:29 PT 12.1 SECONDS (9.5-12.5) 07/10/17 06:29 INR 1.03 07/10/17 06:29 APTT 28.0 SECONDS (24.3-36.9) 07/02/17 16:07 Sodium 129 mEq/L (135-145) L 07/10/17 06:29 Potassium 3.8 mEq/L (3.6-5.0) 07/10/17 06:29 BUN 41 mg/dL (6-20) H 07/10/17 06:29 Creatinine 3.19 mg/dL (0.61-1.24) H 07/10/17 06:29 Glucose 158 mg/dL (65-120) H 07/10/17 06:29 Uric Acid 13.9 mg/dL (4.8-8.7) H D 07/10/17 06:29 Phosphorus 2.4 mg/dL (2.5-4.3) L 07/07/17 13:23 Magnesium 1.9 mg/dL (1.8-2.5) 07/10/17 06:29 Total Bilirubin 0.9 mg/dL (0.3-1.2) 07/08/17 13:05 AST 19 IU/L (10-42) 07/08/17 13:05 ALT 14 IU/L (10-60) 07/08/17 13:05 Alkaline Phosphatase 183 IU/L (42-121) H 07/08/17 13:05 B-Natriuretic Peptide 379 pg/ml (<=100) H 07/10/17 06:29 Home Medications: Haloperidol Lactate 2 mg PO DAILY 07/03/17 Linagliptin [Tradjenta] 5 mg PO DAILY 07/03/17 Metoprolol Succinate [Toprol Xl*] 50 mg PO DAILY 07/03/17 Warfarin Sodium [Coumadin*] 5 mg PO DIRECTED 07/03/17 Warfarin Sodium [Coumadin*] 7.5 mg PO DIRECTED 07/03/17 Doxazosin [Cardura*] 2 mg PO BEDTIME #30 tab 07/10/17 Furosemide [Lasix*] 40 mg PO DAILY #30 tab 07/10/17 [place] Carbonate [[place] Carbonate ER] 300 mg PO DAILY #30 tablet.er 07/10/17 Pantoprazole [Protonix Tab*] 40 mg PO DAILYAC #30 tab 07/10/17 New Medications: Doxazosin [Cardura*] 2 mg PO BEDTIME #30 tab Furosemide [Lasix*] 40 mg PO DAILY #30 tab [place] Carbonate [[place] Carbonate ER] 300 mg PO DAILY #30 tablet.er Pantoprazole [Protonix Tab*] 40 mg PO DAILYAC #30 tab Diet: Renal Activity: Ad marcelle Followup: Arnulfo Cope DO [ACTIVE - CAN ADMIT] - Lou Newton DO, DO [Primary Care Provider] - KERWIN WARREN [UNKNOWN] -
--- NOTE | 2017-07-10 20:50 | P.PN ---
Date of Service: 07/10/17 Vital Signs Temp Pulse Resp BP Pulse Ox 97 F 71 18 106/76 100 07/10/17 12:00 07/10/17 12:00 07/10/17 12:00 07/10/17 12:00 07/10/17 12:00 Assessment/ Plan: Nephrology. Doing well. CPS stable without CP or SOB. +Edema No acute events overnight. reports no lithium PO while at the hospital. Vitals, medications, blood work and imaging reviewed in the chart. General: In no apparent distress, Cooperative HEENT: Normocephalic Neck: Supple, JVD not distended Respiratory: Clear to auscultation bilaterally, Normal air movement Cardiovascular: No edema, Regular rate/rhythm, No rubs Gastrointestinal: Soft and benign, Non-distended Musculoskeletal: No clubbing, No contractures Integumentary: No rashes, No cyanosis Neurological: Normal speech Blood work reviewed in the chart. Initial blood work: Na 125; Cr 6.57 Imagings Data: Reason for Exam: ARTEMIO EXAM DESCRIPTION: US - Renal Ultrasound-Complete - 07/02/2017 8:19 pm CLINICAL HISTORY: . Acute renal insufficiency COMPARISON: CT scan on the same date FINDINGS: The right kidney measures 12 cm with increased echotexture. The left kidney measures 12 cm with increased echotexture. Hydronephrosis is not seen. Small benign-appearing renal cysts are present IMPRESSION: Increased renal echotexture consistent with parenchymal disease No hydronephrosis Small benign-appearing renal cysts Conclusions/Impression: A/ ARTEMIO of unclear etiology but may due to severe hypovolemia in the setting of ANTWAN / diuretic. Proteinuria. [place] Toxicity; HD not indicated at this time. Hyponatremia. Hypokalemia. Acidosis. Anemia in chronic illness. HTN controlled. P/ Continue current POC and Medications. Reduce Doxazosin and Hydralazine. Check an echocardiogram. No NSAIDs. AM labs. Daily weight. Case discussed with Dr. Ayoub.
[2017-07-10] MEDS ORDERED: DOXAZOSIN 2 MG TAB PO SCH (21:00)
--- NOTE | 2017-07-11 04:34 | CON ---
Date of Consultation: 07/10/2017 The patient was admitted initially on 07/02/2017. I saw the patient on 07/10/2017. Reason For Consultation: Atrial fibrillation. History Of Present Illness: Mr. Bauer is a 57-year-old, who was admitted to Dr. Coleman's service on because of generalized weakness. He has been in the hospital since getting workup and treat ment for multiple issues including atrial fibrillation, diabetes, hypertension, bipolar disorder. He was about to go home today, and they wanted my opinion regarding his atrial fibrillation which was c hronic. He reports no cardiac symptoms at this point. Past Medical History: As stated above. Allergies: NONE. Review of Systems: Negative. Social History: Negative. Family History: Noncontributory. Medications At Home: Include warfarin, potassium, Lasix, lithium, metoprolol, lisinopril with hydroc hlorothiazide, Tradjenta, and Haldol. Physical Examination: General: When I saw him today, he was in atrial fibrillation rate of 70, blood pressure is 106/76. He was afebrile. His I's and O's were adequate. O2 saturation was 100% on room air. Vital Signs: Stable. He was afebrile. HEENT: Negative. Neck: Supple no bruit. Chest: Clear. Cardiac exam: Revealed an irregularly irregular rhythm and rate without murmurs, gallops, or rubs. Abdomen: Obese. Extremities: Revealed trace edema. Diagnostic Data: Include a creatinine of 3.19, hemoglobin 10.1 with a white count of 11.8. His sodi um was 129. His potassium was 3.8, glucose was 150. His uric acid was 13.9. BNP was 379. Last lit hium level was 2.3. EKG showed atrial fibrillation. Chest x-ray on admission was normal. Impression And Plan: 1.Chronic atrial fibrillation, on Coumadin and beta-man. I do not recommend any further therapy or change in his therapy. He sees Dr. Ko on a regular basis and he should go back and see him. 2.Acute renal failure. 3.Hypokalemia. 4.Hyponatremia. 5.[place] toxicity. 6.Prerenal azotemia. 7.Metabolic acidosis. 8.Bipolar disorder. Plan: The patient is being discharged today. New medications will include Lasix, doxazosin, and Pro tonix. He will be follow up with Dr. Ko, Dr. Stephen, and Dr. Gross, in the near future. I have a bsolutely no further recommendation as far as Mr. Bauer is concerned. RUSTY/PILO Voice ID: [id number] Report ID: [id number]
--- NOTE | 2017-07-11 07:39 | EKG ---
Test Date: 2017-07-10 Test Time: 05:58:12 [employer] Cutting Machine Tender: RT-O MEASUREMENT RESULTS: Intervals: Rate: 70 AK: QRSD: 100 QT: 478 QTc: 516 Wallace: P: AK: QRS: 25 T: 230 INTERPRETIVE STATEMENTS: Atrial fibrillation ST & T wave abnormality, consider inferior ischemia or digitalis effect ST & T wave abnormality, consider anterolateral ischemia or digitalis effect Prolonged QT Abnormal ECG Compared to ECG 07/02/2017 15:28:29 Ventricular premature complex(es) no longer present ST (T wave) deviation still present Possible ischemia still present Electronically Signed On 07-11-17 07:35:20 CDT by Salvatore Landry
--- NOTE | 2017-07-11 08:53 | ECHO ---
HEIGHT: 5 ft 8 in WEIGHT: 246 lb 9.6 oz DATE OF STUDY: 07/10/[address]: Arnulfo Cope DO 2-DIMENSIONAL: YES M.MODE: YES DOPPLER: YES COLOR FLOW: YES TDS: NO PORTABLE: NO DEFINITY: NO BUBBLE STUDY: NO DIAGNOSIS: CONGESTIVE HEART FAILURE CARDIAC HISTORY: CATHERIZATION: NO SURGERY: NO PROSTHETIC VALVE: NO PACEMAKER: NO MEASUREMENTS (cm) DIASTOLIC (NORMALS) SYSTOLIC (NORMALS) IVSd 1.4 (0.6-1.2) LA Diam 5.0 (1.9-4.0) LVEF 68% LVIDd 4.7 (3.5-5.7) LVIDs 2.9 (2.0-3.5) %FS 38% LVPWd 1.5 (0.6-1.2) Ao Diam 2.9 (2.0-3.7) 2 DIMENSIONAL ASSESSMENT: RIGHT ATRIUM: NORMAL LEFT ATRIUM: DILATED RIGHT VENTRICLE: NORMAL LEFT VENTRICLE: NORMAL TRICUSPID VALVE: NORMAL MITRAL VALVE: NORMAL PULMONIC VALVE: NORMAL AORTIC VALVE: NORMAL PERICARDIAL EFFUSION: NONE AORTIC ROOT: NORMAL LEFT VENTRICULAR WALL MOTION: NORMAL DOPPLER/COLOR FLOW: MILD TRICUSPID REGURGITATION. NORMAL RIGHT VENTRICULAR SYSTOLIC PRESSURE. COMMENTS: MILD TRICUSPID REGURGITATION. NORMAL RIGHT VENTRICULAR SYSTOLIC PRESSURE. LEFT ATRIAL ENLARGEMENT. NO THROMBUS. ATRIAL FIBRILLATION NOTED. NORMAL LEFT VENTRICULAR SIZE AND FUNCTION. TECHNOLOGIST: Peewee ESPINAL
[2017-07-15] MEDS ORDERED: WARFARIN SODIUM 7.5 MG TAB PO SCH (17:00)
== END 2017-07-10 13:18 | disposition home or self-care (01) | DRG 683 ==
LOC: ER 13:32 → ERHOLD 18:37 → 4TH 20:30
PROVIDERS: ADMIT Internal Medicine Hematology & Oncology; ATTEND Family Medicine
DX: N17.9 Acute kidney failure, unspecified (principal); E87.2 Acidosis; E87.1 Hypo-osmolality and hyponatremia; I48.2 Chronic atrial fibrillation; R41.82 Altered mental status, unspecified; T43.595A Adverse effect of other antipsychotics and neuroleptics, initial encounter; E87.6 Hypokalemia; F31.9 Bipolar disorder, unspecified; R79.89 Other specified abnormal findings of blood chemistry; I10 Essential (primary) hypertension; E11.69 Type 2 diabetes mellitus with other specified complication; E83.42 Hypomagnesemia; D72.829 Elevated white blood cell count, unspecified; D63.8 Anemia in other chronic diseases classified elsewhere; Z79.01 Long term (current) use of anticoagulants
CPT/HCPCS: 36415; 51702; 70450; 71045; 74176; 76377; 76770; 80048; 80053; 80076; 80178; 80307; 81001; 81003; 82043; 82550; 82553; 82570; 82962; 83036; 83520; 83735; 83880; 84100; 84132; 84156; 84443; 84481; 84484; 84550; 85025; 85610; 85730; 86021; 86038; 86160; 86335; 86704; 86706; 86803; 87040; 87086; 87088; 87340; 88108; 93005; 93306; 96360; 96361; 97163; 99285; G0103; J0360; J2270; J3475; J7030